=== PATIENT | female | born 1960 | race Caucasian/White ===

== ENCOUNTER → 2016-05-19 | Outpatient (CLI) | payer OTHER ==
[~2016-05-19] MED LIST: CEPH500C PO; ESTR1TAB24 PO; FRS325T PO; OXYC-12 PO; RT-COMBINH IH
--- OUTSIDE RECORDS SUMMARY | 2016-05-19 13:47 | XMS REPORT | Continuity of Care Document ---
Author Author Interface Organization Interface Address Unknown Phone Unavailable Problems Problem Status Onset Date Classification Date Reported Comments Source Medications Medication Details Route Status Patient Instructions Ordering Provider Order Date Source Allergies, Adverse Reactions, Alerts Substance Category Reaction Severity Reaction type Status Date Reported Comments Source Immunizations Immunization Date Given Site Status Last Updated Comments Source Results Order Name Results Value Reference Range Date Interpretation Comments Source CT Spine Cervical w/o Cont [id number] CT Spine Cervical w/ o Cont [id number] Name: MARCO GUAJARDO CT Scan Accession Number Exam Exam Date/Time Ordering Physician [id number] CT Spine Cervical w/o 01/09/2015 23:15 CDT Liao , Lias L Cont CPT code 99393 Reason For Exam (CT Spine Cervical w/o Cont) trauma Report EXAMINATION: CT cervical spine without contrast HISTORY: Patient fell in bathtub. Left-sided headache. Neck pain TECHNIQUE: Axial CT images through the cervical spine were obtained without IV contrast. Multiplanar reconstructed images were obtained. COMPARISON: None. FINDINGS: No acute fracture or prevertebral soft tissue swelling. Vertebral bodies are normal in height. There is grade 1 anterolisthesis of C3 on C4 and C4 on C5. There is grade 1 retrolisthesis of C5 on C6 and C6 on C7. There is facet hypertrophy and uncovertebral hypertrophy at multiple levels. Severe left neural foraminal stenosis seen at C5-6 and C6-C7. Severe right neural foraminal stenosis seen at C3-C4, C4-C5, C5-6, and C6-C7. IMPRESSION: No acute bony abnormality of the cervical spine. THIS IS AN ELECTRONICALLY VERIFIED REPORT 01/10/2015 12:06 AM: Ginger Epstein M.D. MA:mayco 12:03 AM 12:06 am APO Final Report Dictating Physician: Bryn Johnson ELECTRONIC SIGNATURE Signed: 01.10.2015 00:08 Signed by: Bryn Johnson Technologist: Antony Harrell, RT(R)(CT) 01/09/[address] Head w/o Cont [id number] CT Head w/o Cont [id number] Name: MARCO GUAJARDO CT Scan Accession Number Exam Exam Date/Time Ordering Physician [id number] CT Head w/o Cont 01/09/2015 23:15 CDT Lisa Liao CPT code 84754 Reason For Exam (CT Head w/o Cont) trauma Report EXAMINATION: CT brain without contrast HISTORY: Trauma. Patient fell in the shower. COMPARISON: None. TECHNIQUE: Axial CT images through the brain were obtained without IV contrast. FINDINGS: There is no intracranial mass, mass effect, hemorrhage, or abnormal extra-axial fluid collection. The ventricles are moderately enlarged out of proportion to the cerebral sulci. No CT evidence of acute infarction. There are periventricular and subcortical white matter hypodensities that are nonspecific but most likely represent small vessel disease. There are vascular calcifications. The visualized orbital structures are normal. The paranasal sinuses are clear. No fluid in the middle ear cavities or the mastoid air cells. No calvarial fracture. IMPRESSION: 1. No acute intracranial abnormality. 2. Moderate ventriculomegaly. This is nonspecific and may be seen with communicating hydrocephalus or normal pressure hydrocephalus. THIS IS AN ELECTRONICALLY VERIFIED REPORT 01/10/2015 12:08 AM: Ginger Epstein M.D. MA:mayco 12:06 AM 12:08 am APO Final Report Dictating Physician: Bryn Johnson ELECTRONIC SIGNATURE Signed: 01.10.2015 00:10 Signed by: Bryn Johnson Technologist: Antony Harrell, RT(R)(CT) 01/09/2015 Colt Albarran XR Humerus 2 View Left [id number] XR Humerus 2 View Left [id number] Name: MARCO GUAJARDO Diagnostic Radiology Accession Number Exam Exam Date/Time Ordering Physician [id number] XR Humerus 2 View Left 01/09/2015 23:01 CDT Lisa Liao CPT code 32039 Reason For Exam (XR Humerus 2 View Left) trauma Report Study: XR Humerus 2 View Left [id number] Reason for exam: trauma Comparison: None. Findings: No acute fracture or dislocation. No radiopaque foreign bodies. Impression: No acute osseous abnormalities. Final Report Dictating Physician: Rd Hernandez M.D. ELECTRONIC SIGNATURE Signed: 01.10.2015 14:33 Signed by: Rd Hernandez M.D. Technologist: Eldon Campos RT(R)(CT),Lora Castellon RT(R) 01/09/2015 [facility] Vital Signs Vital Sign Value Date Comments Source Encounters Location Location Details Encounter Type Encounter Number Reason For Visit Attending Provider ADM Date DC Date Status Source Procedures Procedure Code Date Perfomer Comments Source
== END ==
LOC: RAD 13:43
PROVIDERS: ATTEND Nurse Practitioner Adult Health
DX: N63 Unspecified lump in breast (principal)

== ENCOUNTER 2016-12-13 11:35 | Observation (INO) | payer OTHER ==
[~2016-12-13] VITALS: Ht 170.2 cm; Wt 60.8 kg
[2016-12-13] MEDS ORDERED: RX-NITROGLYCERIN 0.4 MG TAB BTL 25'S SL ONE (11:42)
[2016-12-13] MEDS ORDERED: ASPIRIN 81 MG CHEW (CHILDREN'S ASA) PO ONE (11:45)
--- NOTE | 2016-12-13 11:46 | ED Abdominal Pain ---
General Stated Complaint: CHEST PAIN X1 WEEK Source of Information: Patient Exam Limitations: No Limitations History of Present Illness Time Seen By Provider: 11:37 Initial Comments Here with report of central chest pain that actually his pain that radiates from her back to her chest. This is associated with some nausea occasionally. Denies sweating other than normal or breathing problems. States that she has had several episodes this week all involving activity at work. When she rests the pain goes away. The pain continues throughout any activity. This is the same as today. Reports that it's 5 out of 10 but it was 9 out of 10 yesterday. Has history of previous heart stent placement at outside facility due to active heart attack which also had back pain and neck pain as the presenting findings. Reportedly had 67 percent blockage in one of the other arteries that was not stented at that time. She reports taking meds as directed. Timing/Duration: 1 Hour Severity/Quality: Moderate, Aching Location: Other (back) Radiation: Chest Activities at Onset: None Modifying Factors: Worsens With Exercise, Improves With Resting Associated Symptoms: Back Pain, Chest Pain, No Diaphoresis, No Fever/Chills, No Shortness of Air, No Weakness Allergies and Home Medications Allergies Coded Allergies: codeine (Verified Allergy, Unknown, 12/13/16) latex (Unverified Allergy, Unknown, RASH, 09/08/12) Home Medications Cephalexin Monohydrate 500 Mg Capsule, 1 EACH PO QID, (Reported) Estradiol 1 Mg Tablet, 1 MG PO DAILY, (Reported) Ferrous Sulfate 325 Mg Tab, 325 MG PO DAILY, (Reported) Ipratropium/Albuterol Sulfate 14.7 Gm Aer.w.adap, 1-2 PUFF IH PRN, (Reported) Oxycodone Hcl/Acetaminophen 1 Each Tablet, 1-2 EACH PO Q4H PRN, (Reported) Review of Systems Constitutional: see HPI, No chills, No fever EENTM: No Symptoms Reported Respiratory: No Symptoms Reported, Denies Cough, Denies Shortness of Air Cardiovascular: See HPI, Chest Pain, Denies Edema, Denies Irregular Heart Rate Gastrointestinal: No Symptoms Reported, Denies Abdominal Pain, Nausea, Denies Vomiting Genitourinary: No Symptoms Reported Musculoskeletal: see HPI, back pain Skin: no symptoms reported All Other Systems Reviewed Negative Unless Noted: Yes Past Dvfvzhu-Icpxsf-Cdftvw Hx Patient Social History Alcohol Use: Denies Use Recreational Drug Use: No Smoking Status: Current Everyday Smoker Type Used: Cigarettes Recent Foreign Travel: No Contact w/Someone Who Travel: No Immunizations Up To Date Tetanus Booster (TDap): More than 5yrs PED Vaccines UTD: Yes Seasonal Allergies Seasonal Allergies: Yes Surgeries HX Surgeries: Yes Surgeries: Coronary Stent Respiratory Hx Respiratory Disorders: Yes Respiratory Disorders: Asthma Cardiovascular Hx Cardiac Disorders: No Cardiac Disorders: Coronary Artery Disease, Hypertension Neurological Hx Neurological Disorders: No Reproductive System Hx Reproductive Disorders: Yes (UTERINE FIBROID ) Sexually Transmitted Disease: No HIV/AIDS: No Female Reproductive Disorders: Denies TRAVEL [employer]OR History: Menopausal Genitourinary Hx Genitourinary Disorders: No Gastrointestinal Hx Gastrointestinal Disorders: Yes (HEARTBURN) Musculoskeletal Hx Musculoskeletal Disorders: No Endocrine Hx Endocrine Disorders: No HEENT HX ENT Disorders: No (READING GLASSES) Loss of Vision: Bilateral Hearing Impairment: Denies Cancer Hx Cancer: No Psychosocial Hx Psychiatric Problems: Yes Behavioral Health Disorders: Anxiety, Depression Integumentary HX Skin/Integumentary Disorder: No Blood Transfusions Hx Blood Disorders: Yes (ANEMIA) Adverse Reaction to a Blood Tr: No (NEVER HAD A TRANSFUSION) Reviewed Nursing Assessment Reviewed/Agree w Nursing PMH: Yes Family Medical History Significant Family History: No Pertinent Family Hx Physical Exam Vital Signs VS - Last 72 Hours, by Label 12/13/16 12/13/16 12/13/16 11:35 11:35 11:35 Temp 97.2 Pulse 82 Resp 18 B/P (MAP) 166/94 Pulse Ox 99 99 O2 Delivery Nasal Cannula Nasal Cannula O2 Flow Rate 2.00 2.0 Capillary Refill : General Appearance: WD/WN, no apparent distress HEENT: PERRL/EOMI, pharynx normal Neck: full range of motion, supple Respiratory: lungs clear, normal breath sounds Cardiovascular: regular rate, rhythm, no murmur Peripheral Pulses: 2+ Dorsalis Pedis (R), 2+ Left Dors-Pedis (L), 2+ Radial Pulses (R), 2+ Radial Pulses (L) Gastrointestinal: non tender, soft Extremities: non-tender, normal inspection Back: normal inspection, no CVA tenderness, no vertebral tenderness Neurologic/Psychiatric: alert, oriented x 3 Skin: normal color, warm/dry Progress/Results/Core Measures Results/Orders Lab Results Laboratory Tests Test 12/13/16 11:47 Range/Units White Blood Count 4.1 L 4.3-11.0 10^3/uL Red Blood Count 4.08 L 4.35-5.85 10^6/uL Hemoglobin 11.9 11.5-16.0 G/DL Hematocrit 37 35-52 % Mean Corpuscular Volume 91 80-99 FL Mean Corpuscular Hemoglobin 29 25-34 PG Mean Corpuscular Hemoglobin Concent 32 32-36 G/DL Red Cell Distribution Width 13.8 10.0-14.5 % Platelet Count 151 130-400 10^3/uL Mean Platelet Volume 11.1 H 7.4-10.4 FL Neutrophils (%) (Auto) 66 42-75 % Lymphocytes (%) (Auto) 22 12-44 % Monocytes (%) (Auto) 9 0-12 % Eosinophils (%) (Auto) 3 0-10 % Basophils (%) (Auto) 1 0-10 % Neutrophils # (Auto) 2.7 1.8-7.8 X 10^3 Lymphocytes # (Auto) 0.9 L 1.0-4.0 X 10^3 Monocytes # (Auto) 0.4 0.0-1.0 X 10^3 Eosinophils # (Auto) 0.1 0.0-0.3 10^3/uL Basophils # (Auto) 0.0 0.0-0.1 10^3/uL Prothrombin Time 12.5 12.2-14.7 SEC INR Comment 0.9 0.8-1.4 Activated Partial Thromboplast Time 24 24-35 SEC D-Dimer 0.69 H 0.00-0.49 UG/ML Sodium Level 140 135-145 MMOL/L Potassium Level 4.3 3.6-5.0 MMOL/L Chloride Level 107 98-107 MMOL/L Carbon Dioxide Level 27 21-32 MMOL/L Anion Gap 6 5-14 MMOL/L Blood Urea Nitrogen 17 7-18 MG/DL Creatinine 0.81 0.60-1.30 MG/DL Estimat Glomerular Filtration Rate > 60 BUN/Creatinine Ratio 21 Glucose Level 104 70-105 MG/DL Calcium Level 9.0 8.5-10.1 MG/DL Magnesium Level 1.9 1.8-2.4 MG/DL Total Bilirubin 0.4 0.1-1.0 MG/DL Aspartate Amino Transf (AST/SGOT) 18 5-34 U/L Alanine Aminotransferase (ALT/SGPT) 11 0-55 U/L Alkaline Phosphatase 60 40-136 U/L Myoglobin 45.1 10.0-92.0 NG/ML Troponin I < 0.30 <0.30 NG/ML Total Protein 5.9 L 6.4-8.2 GM/DL Albumin 3.7 3.2-4.5 GM/DL Amylase Level 59 25-125 U/L Lipase 39 8-78 U/L My Orders Orders - WILL KOHLER MD Cbc With Automated Diff (12/13/16 11:44) Magnesium (12/13/16 11:44) Chest 1 View, Ap/Pa Only (12/13/16 11:44) Ekg Tracing (12/13/16 11:44) Cardiac Profile 1 (12/13/16 11:44) Comprehensive Metabolic Panel (12/13/16 11:44) Myoglobin Serum (12/13/16 11:44) Protime With Inr (12/13/16 11:44) Partial Thromboplastin Time (12/13/16 11:44) O2 (12/13/16 11:44) Monitor-Rhythm Ecg Trace Only (12/13/16 11:44) Lipid Panel (12/14/16 06:00) Aspirin Chewable Tablet (Baby Aspirin Ch (12/13/16 11:45) Saline Lock/Iv-Start (12/13/16 11:44) Lipase (12/13/16 11:44) Amylase (12/13/16 11:44) Fibrin Degradation Products (12/13/16 11:44) Rx-Nitroglycerin Sl Tabs (Rx-Nitrostat S (12/13/16 12:00) Rx-Nitroglycerin Sl Tabs (Rx-Nitrostat S (12/13/16 11:42) Ct Angio Chest W (12/13/16 13:04) Saline Lock/Iv-Start (12/13/16 13:04) Ns Iv 1000 Ml (Sodium Chloride 0.9%) (12/13/16 13:04) Acetaminophen Tablet (Tylenol Tablet) (12/13/16 13:04) Acetaminophen Tablet (Tylenol Tablet) (12/13/16 12:58) Iohexol Injection (Omnipaque 350 Mg/Ml 1 (12/13/16 13:30) Ns (Ivpb) (Sodium Chloride 0.9% Ivpb Bag (12/13/16 13:30) Medications Given in ED Current Medications Medications Dose Ordered Sig/Yonathan Route Start Time Stop Time Status Last Admin Dose Admin Aspirin 324 mg ONCE ONCE PO 12/13/16 11:45 12/13/16 11:46 DC 12/13/16 11:49 324 MG Iohexol 150 ml ONCE ONCE IV 12/13/16 13:30 12/13/16 13:31 DC 12/13/16 13:33 125 ML Nitroglycerin 0.4 mg PRN PRN SL 12/13/16 12:00 12/13/16 11:58 0.4 MG Sodium Chloride 100 ml ONCE ONCE IV 12/13/16 13:30 12/13/16 13:31 DC 12/13/16 13:33 100 ML Sodium Chloride 1,000 ml @ 0 mls/hr Q0M ONCE IV 12/13/16 13:04 12/13/16 13:05 DC 12/13/16 13:54 1,000 MLS/HR Vital Signs/I&O Vital Sign - Last 12Hours 12/13/16 12/13/16 12/13/16 11:35 11:35 11:35 Temp 97.2 Pulse 82 Resp 18 B/P (MAP) 166/94 Pulse Ox 99 99 O2 Delivery Nasal Cannula Nasal Cannula O2 Flow Rate 2.00 2.0 Progress Note : Progress Note Seen and evaluated. IV, labs, EKG, chest x-ray, ASA 324 mg by mouth and nitroglycerin sublingual ordered. Patient had resolution of pain after 2 nitroglycerin. Monitor patient. D-dimer elevated. CT angiogram ordered and normal saline 1 L bolus. Monitor patient. 1428: I did discuss the case with Dr. Ojeda CT and UA was negative for ulnar embolism. She will admit the patient for chest pain, observation status. I did discuss the case with Dr. Seth that 1431. He accepts patient in consult. Findings and concerns discussed with patient and family who agree with plan. ECG Initial ECG Impression Date: Dec 13, 2016 Initial ECG Impression Time: 11:40 Initial ECG Rate: 74 Initial ECG Rhythm: Normal Sinus Initial ECG Intervals: Normal Comment Sinus rhythm with left atrial abnormality. Minimal ST depression in the inferior leads. No previous available for comparison. Normal axis. Interpreted by me. Diagnostic Imaging Diagonstic Imaging: Xray Plain Films/CT/US/NM/MRI: chest Comments [place], [place] NAME: MARCO GUAJARDO [facility] REC#: [id number] PT STATUS: REG ER : 1960 PHYSICIAN: WILL KOHLER MD ADMIT DATE: 12/13/16/ER Draft Date of Exam:12/13/16 CHEST 1 VIEW, AP/PA ONLY INDICATION: Chest pain FINDINGS: The lungs are clear. The heart size and vascularity within normal limits. There is no effusion or pneumothorax. IMPRESSION: No acute appearing abnormality. Dictated on workstation # [id number] Dict: 12/13/16 1216 Trans: 12/13/16 1220 [facility] [id number] Interpreted by: MIKKI MANDEL Electronically signed by: Diagonstic Imaging: CT Plain Films/CT/US/NM/MRI: chest Comments [place], [place] NAME: MARCO GUAJARDO [facility] REC#: [id number] PT STATUS: REG ER : 1960 PHYSICIAN: WILL KOHLER MD ADMIT DATE: 12/13/16/ER Draft Date of Exam:12/13/16 CT ANGIO CHEST W PROCEDURE: CT angiography of the chest with contrast. TECHNIQUE: Multiple contiguous axial images were obtained through the chest after uneventful bolus administration of intravenous contrast. Reconstructed CTA MIP acquisitions were also performed. INDICATION: Chest pain, asthma. FINDINGS: There are no pulmonary arterial filling defects. There is no PE. The thoracic aorta is patent and showed no dissection, mural hemorrhage or rupture. Some mild thickening of the central airways which can be seen in reactive and bronchitis or asthma exacerbation. Some heterogeneous air trapping most conspicuous in the apices. No ronnie bronchiectasis. No alveolar consolidation or focal pneumonia. No effusion or pneumothorax. IMPRESSION: Negative for PE or acute aortic pathology. Heterogeneous air trapping with thickening of the central airways and peribronchial cuffing. No focal consolidation or acute pleural pathology, however. Dictated on workstation # [id number] Dict: 12/13/16 1350 Trans: 12/13/16 1357 [id number] Interpreted by: MIKKI MANDEL Electronically signed by: Departure Communication Time/Spoke to Admitting Phy: 14:28 Time/Spoke to Consulting Physi: 14:31 Impression Impression: Primary Impression: Chest pain Qualified Codes: R07.9 - Chest pain, unspecified Disposition: 09 ADMITTED INPATIENT Condition: Stable Admissions Decision to Admit Reason: Admit from ER (General) Decision to Admit/Date: Dec 13, 2016 Time/Decision to Admit Time: 14:28 Departure-Patient Inst. Referrals: FREDDY SIMONS DO (PCP) Primary Care Physician LESLY TREJO (Family) Primary Care Physician WILL KOHLER MD Dec 13, 2016 11:46
[2016-12-13] MEDS: RX-NITROGLYCERIN 0.4 MG TAB BTL 25'S SL PRN ×2 (11:52→11:58)
[2016-12-13 11:56] LABS: BASOPHILS % (AUTO) 1 % (0-10); EOSINOPHILS # (AUTO) 0.1 10^3/uL (0.0-0.3); EOSINOPHILS % (AUTO) 3 % (0-10); LYMPHOCYTES # (AUTO) 0.9 X 10^3 (1.0-4.0); LYMPHOCYTES % (AUTO) 22 % (12-44); MEAN CORPUSCULAR HEMOGLOBIN 29 PG (25-34); MEAN CORPUSCULAR HGB CONC 32 G/DL (32-36); MEAN CORPUSCULAR VOLUME 91 FL (80-99); MEAN PLATELET VOLUME 11.1 FL (7.4-10.4); MONOCYTES # (AUTO) 0.4 X 10^3 (0.0-1.0); MONOCYTES % (AUTO) 9 % (0-12); NEUTROPHILS # (AUTO) 2.7 X 10^3 (1.8-7.8); NEUTROPHILS % (AUTO) 66 % (42-75); PLATELET COUNT 151 10^3/uL (130-400); RED BLOOD COUNT 4.08 10^6/uL (4.35-5.85); RED CELL DISTRIBUTION WIDTH 13.8 % (10.0-14.5); WHITE BLOOD COUNT 4.1 10^3/uL (4.3-11.0)
[2016-12-13 12:04] LABS: INR 0.9 (0.8-1.4); PROTHROMBIN TIME PATIENT 12.5 SEC (12.2-14.7)
[2016-12-13 12:14] LABS: ALANINE AMINOTRANSFERASE 11 U/L (0-55); ALBUMIN 3.7 GM/DL (3.2-4.5); AMYLASE 59 U/L (25-125); ANION GAP 6 MMOL/L (5-14); ASPARTATE AMINO TRANSFERASE 18 U/L (5-34); BILIRUBIN,TOTAL 0.4 MG/DL (0.1-1.0); BLOOD UREA NITROGEN 17 MG/DL (7-18); BUN/CREATININE RATIO 21; CARBON DIOXIDE 27 MMOL/L (21-32); CHLORIDE 107 MMOL/L (98-107); CREATININE SERUM 0.81 MG/DL (0.60-1.30); GFR ESTIMATED > 60; GLUCOSE 104 MG/DL (70-105); LIPASE 39 U/L (8-78); MAGNESIUM 1.9 MG/DL (1.8-2.4); POTASSIUM 4.3 MMOL/L (3.6-5.0); SODIUM 140 MMOL/L (135-145); TOTAL PROTEIN 5.9 GM/DL (6.4-8.2)
--- NOTE | 2016-12-13 12:20 | Diagnostic Imaging Report ---
INDICATION: Chest pain FINDINGS: The lungs are clear. The heart size and vascularity within normal limits. There is no effusion or pneumothorax. IMPRESSION: No acute appearing abnormality. Dictated by: Dictated on workstation # [id number]
[2016-12-13 12:21] LABS: MYOGLOBIN SERUM 45.1 NG/ML (10.0-92.0)
[2016-12-13] MEDS ORDERED: ACETAMINOPHEN 500 MG TAB (TYLENOL) ONE (12:58)
[2016-12-13] MEDS ORDERED: NS IV 1000 ML 1,000 ML IV ONE (13:04)
[2016-12-13] MEDS ORDERED: ACETAMINOPHEN 500 MG TAB (TYLENOL) PO STA (13:04)
[2016-12-13] MEDS ORDERED: IOHEXOL 350 MG/ML 150 ML (OMNIPAQUE 350) VIAL IV ONE (13:30)
[2016-12-13] MEDS ORDERED: NS 100 ML (IVPB) BAG IV ONE (13:30)
--- NOTE | 2016-12-13 13:57 | Diagnostic Imaging Report ---
PROCEDURE: CT angiography of the chest with contrast. TECHNIQUE: Multiple contiguous axial images were obtained through the chest after uneventful bolus administration of intravenous contrast. Reconstructed CTA MIP acquisitions were also performed. INDICATION: Chest pain, asthma. FINDINGS: There are no pulmonary arterial filling defects. There is no PE. The thoracic aorta is patent and showed no dissection, mural hemorrhage or rupture. Some mild thickening of the central airways which can be seen in reactive and bronchitis or asthma exacerbation. Some heterogeneous air trapping most conspicuous in the apices. No ronnie bronchiectasis. No alveolar consolidation or focal pneumonia. No effusion or pneumothorax. IMPRESSION: Negative for PE or acute aortic pathology. Heterogeneous air trapping with thickening of the central airways and peribronchial cuffing. No focal consolidation or acute pleural pathology, however. Dictated by: Dictated on workstation # [id number]
[2016-12-13 15:31] VITALS: BP 148/88
[2016-12-13] MEDS ORDERED: NITROGLYCERIN SUBLINGUAL 0.4 MG TAB (NITROSTAT) SL PRN (15:45)
[2016-12-13] MEDS ORDERED: CATHETER FLUSH 10 ML SYR IV PRN (15:45)
[2016-12-13] MEDS ORDERED: morphine INJ 4 MG/ML 1 ML (VIAL/SYRINGE) IV PRN (15:45)
[2016-12-13 16:01] VITALS: BP 148/88
--- NOTE | 2016-12-13 16:14 | Consultation-Cardiology ---
HPI-Cardiology Cardiology Consultation: Date of Consultation 12/13/16 Time Seen by Provider: 15:55 Date of Admission Attending Physician Renata Ojeda MD Admitting Physician Rosana Bedoya DO Consulting Physician TATY PACHECO MD, MA, FACP, FACC, FSCAI, CCDS HPI: Chief Complaint: Chest discomfort HPI: 56 yo woman who has had two episodes of cp. First one last night mostly in mid back, mod, non-radiating, lasting 5 hours, self resolving, unassociated with other symptoms, w/o aggravating or relieving factors. Another episode this am: mid back and mid chest, mild (was able to go back to sleep). When awoke from her sleep her mild chest discomfort was still there. Came to ER and s/l NTG relieved the discomfort and has since had a mild to mod headache. Today's episode, although milder, also lasted 5-6 hours Chronic tobacco use No shortness of breath or palp or syncope. Sometimes has postural dizziness Review of Systems-Cardiology Review of Systems Constitutional: No weight loss, No weight gain Eyes: No vision change Ears/Nose/Throat: No ear discharge, No nasal drainage, No recent hearing loss Respiratory: As described under HPI Cardiovascular: As described under HPI Gastrointestinal: No constipation, No diarrhea, No nausea, No vomiting Genitourinary: No dysuria, No hematuria, No urine frequency changes Musculoskeletal: back pain Skin: No rash, No ulcerations Psychiatric/Neurological: No seizure, No focal weakness, No syncope Hematologic: No bleeding abnormalities All Other Systems Reviewed Negative Unless Noted: Yes LJF-Dhxnfg-Zodeoj Hx Patient Social History Alcohol Use: Denies Use Recreational Drug Use: No Smoking Status: Current Everyday Smoker Type Used: Cigarettes Recent Foreign Travel: No Recent Infectious Disease Expo: No Hospitalization with Isolation: Denies Immunizations Up To Date Tetanus Booster (TDap): More than 5yrs Past Medical History PMH As described under Assessment. Family Medical History Family Medical History: Fam h/o early CAD. Both parents had [facility] in their early 50s Allergies and Home Medications Allergies Coded Allergies: codeine (Verified Allergy, Unknown, 12/13/16) latex (Unverified Allergy, Unknown, RASH, 09/08/12) Home Medications Cephalexin Monohydrate 500 Mg Capsule, 1 EACH PO QID, (Reported) Estradiol 1 Mg Tablet, 1 MG PO DAILY, (Reported) Ferrous Sulfate 325 Mg Tab, 325 MG PO DAILY, (Reported) Ipratropium/Albuterol Sulfate 14.7 Gm Aer.w.adap, 1-2 PUFF IH PRN, (Reported) Oxycodone Hcl/Acetaminophen 1 Each Tablet, 1-2 EACH PO Q4H PRN, (Reported) Physical Exam-Cardiology Physical Exam Vital Signs/I&O Vital Sign - Last 12Hours 12/13/16 12/13/16 12/13/16 12/13/16 11:35 11:35 11:35 15:11 Temp 97.2 Pulse 82 67 Resp 18 18 B/P (MAP) 166/94 Pulse Ox 99 99 100 O2 Delivery Nasal Cannula Nasal Cannula O2 Flow Rate 2.00 2.0 12/13/16 15:31 Temp 98.0 Pulse 63 Resp 20 B/P (MAP) 148/88 Pulse Ox 98 O2 Delivery Room Air Capillary Refill : Less Than 3 Seconds Constitutional: AAO x 3, well-developed, well-nourished HEENT: EOMI, hearing is well preserved Neck: carotid pulses are 2 + bilaterally, with good upstrokes Respiratory: accessory muscle use, lungs clear to percussion, lungs clear to auscultation Cardiovascular: regular rate-rhythm, S1 and S2, systolic murmur (faint KASH at card base) Gastrointestinal: No tender, soft, No guarding, No rebound, audible bowel sounds Extremities: No clubbing, No cyanosis, No significant edema Neurologic/Psychiatric: oriented x 3, grossly intact, power is 5/5 both on sides Skin: No rash on exposed areas, No ulcerations on exposed areas Data Review Labs Laboratory Tests 12/13/16 11:47: White Blood Count 4.1L, Red Blood Count 4.08L, Hemoglobin 11.9, Hematocrit 37, Mean Corpuscular Volume 91, Mean Corpuscular Hemoglobin 29, Mean Corpuscular Hemoglobin Concent 32, Red Cell Distribution Width 13.8, Platelet Count 151, Mean Platelet Volume 11.1H, Neutrophils (%) (Auto) 66, Lymphocytes (%) (Auto) 22 , Monocytes (%) (Auto) 9, Eosinophils (%) (Auto) 3, Basophils (%) (Auto) 1, Neutrophils # (Auto) 2.7, Lymphocytes # (Auto) 0.9L, Monocytes # (Auto) 0.4, Eosinophils # (Auto) 0.1, Basophils # (Auto) 0.0, Prothrombin Time 12.5, INR Comment 0.9, Activated Partial Thromboplast Time 24, D-Dimer 0.69H, Sodium Level 140, Potassium Level 4.3, Chloride Level 107, Carbon Dioxide Level 27, Anion Gap 6, Blood Urea Nitrogen 17, Creatinine 0.81, Estimat Glomerular Filtration Rate > 60, BUN/Creatinine Ratio 21, Glucose Level 104, Calcium Level 9.0, Magnesium Level 1.9, Total Bilirubin 0.4, Aspartate Amino Transf (AST/SGOT ) 18, Alanine Aminotransferase (ALT/SGPT) 11, Alkaline Phosphatase 60, Myoglobin 45.1, Troponin I < 0.30, Total Protein 5.9L, Albumin 3.7, Amylase Level 59, Lipase 39 Laboratory Tests 12/13/16 11:47 A/P-Cardiology Assessment/Admission Diagnosis CAD: cor stenting after [facility] in Nov 2104 at [place], [place] (Promus 3x32 in RCA on 12/07/14, according to her wallet card) Chronic tobacco use Hypertension Hyperlipidemia H/o bronchial asthma Fam h/o early CAD Discussion and Recomendations * Observation for ACS * Echo in am * Further recs to be based on hosp course * Advised to quit tobacco use Clinical Quality Measures AMI/AHF: ASA po Prior to arrival: TATY Madison MD FACP FAC CCDS Dec 13, 2016 16:14
[2016-12-13] MEDS ORDERED: lisINopril 20 MG (ZESTRIL) TAB PO NR (16:30)
[2016-12-13] MEDS ORDERED: ACETAMINOPHEN 325 MG TABLET/CAPLET (TYLENOL) PO PRN (16:30)
[2016-12-13] MEDS ORDERED: ASPIRIN 81 MG CHEW (CHILDREN'S ASA) PO NR (16:30)
[2016-12-13] MEDS ORDERED: CLOPIDOGREL 75 MG (PLAVIX) TABLET PO NR ×2 (16:30)
[2016-12-13] MEDS ORDERED: LISINOPRIL 40 MG TAB PO NR (16:30)
[2016-12-13] MEDS ORDERED: PATIENT MAY USE OWN MEDS, ALL MC SCH (16:45)
[2016-12-13] MEDS: NS IV 1000 ML 1,000 ML IV SCH (16:50)
[2016-12-13] MEDS ORDERED: RT-ALBUTEROL/IPRATROPIUM 3 ML (DUONEB) VIAL INH PRN (18:00)
[2016-12-13] MEDS ORDERED: NICOTINE 21 MG (NICODERM) PATCH ONE (18:16)
[2016-12-13 20:16] VITALS: BP 143/74
[2016-12-13] MEDS: RT-ALBUTEROL/IPRATROPIUM 3 ML (DUONEB) VIAL INH SCH (20:19)
[2016-12-13] MEDS: CARVEDILOL 3.125 MG (COREG) TABLET PO SCH (20:38)
[2016-12-13] MEDS ORDERED: LIPITOR 80 MG PO SCH (21:00)
[2016-12-13] MEDS ORDERED: ATORVASTATIN 40 MG (LIPITOR) TABLET PO SCH (21:00)
[2016-12-13] MEDS ORDERED: CARVEDILOL 3.125 MG (COREG) TABLET PO SCH (21:00)
[2016-12-14] VITALS: BP 114/54
--- OUTSIDE RECORDS SUMMARY | 2016-12-14 02:08 | XMS REPORT ---
Author Author LESLY TREJO Organization [employer] Address Unknown Phone Unavailable Care Team Providers Care Theater Technician Name Role Phone LESLY TREJO Unavailable Allergies No Known Allergies Problems Problem Type Condition Code Onset Dates Condition Status Problem Breast lump N63 Active Problem Abnormal finding on mammography R92.8 Active Problem Coronary artery disease, angina presence unspecified, unspecified vessel or lesion type, unspecified whether atka or transplanted heart I25.10 Active Problem Anxiety F41.9 Active Problem Combined hyperlipidemia E78.2 Active Problem Depression, unspecified depression type F32.9 Active Problem Secondary hypertension I15.9 Active Problem Uncomplicated asthma, unspecified asthma severity J45.909 Active Medications No Known Medications Results No Known Results Summary Purpose [employer] Submission
--- OUTSIDE RECORDS SUMMARY | 2016-12-14 02:08 | XMS REPORT ---
Author Author LESLY TREJO [facility] eClinicalWorks Address Unknown Phone Unavailable Care Team Providers Care House Mover Supervisor Name Role Phone LESLY TREJO CP Unavailable Allergies, Adverse Reactions, Alerts Substance Reaction Event Type Latex rash Drug Allergy Codeine Sulfate nausea and vomiting Drug Allergy Problems Problem Type Condition Code Onset Dates Condition Status Assessment Combined hyperlipidemia E78.2 Active Assessment Secondary hypertension I15.9 Active Assessment Uncomplicated asthma, unspecified asthma severity J45.909 Active Assessment Breast lump N63 Active Assessment Depression, unspecified depression type F32.9 Active Problem Secondary hypertension I15.9 Active Problem Uncomplicated asthma, unspecified asthma severity J45.909 Active Problem Coronary artery disease, angina presence unspecified, unspecified vessel or lesion type, unspecified whether [place] or transplanted heart I25.10 Active Problem Breast lump N63 Active Assessment Coronary artery disease, angina presence unspecified, unspecified vessel or lesion type, unspecified whether [place] or transplanted heart I25.10 Active Problem Combined hyperlipidemia E78.2 Active Problem Depression, unspecified depression type F32.9 Active Medications Medication Code System Code Instructions Start Date End Date Status Dosage Lipitor [facility] [address]-34 80 MG Orally Once a day 1 tablet Aspirin [facility] [address]6618 81 MG Orally Once a day 1 tablet Coreg [facility] [address]-46 3.125 MG Orally 2 times a day 1 tablet Nitrostat [facility] [address]-69 0.4 MG Sublingual not defined Albuterol Sulfate [facility] [address]-53 108 (90 Base) MCG/ACT Inhalation every 4 hrs 1-2 puff as needed Plavix [facility] [address]-66 75 MG Orally Once a day 1 tablet Lisinopril [facility] [address]-85 40 mg Orally Once a day 1 tablet Procedures Procedure Coding System Code Date COMPREHEN METABOLIC PANEL CPT-4 46272 November 06, 2015 LIPID PANEL CPT-4 46460 November 06, 2015 COMPLETE CBC W/AUTO DIFF WBC CPT-4 05591 November 06, 2015 Office Visit, New Pt., Level 4 CPT-4 37422 November 06, 2015 ASSAY THYROID STIM HORMONE CPT-4 44296 November 06, 2015 Vital Signs Date/Time: November 06, 2015 Cardiac Monitoring Heart Rate 80 bpm Weight 129 lbs Height 67 in Blood Pressure Diastolic 100 mmHg Blood Pressure Systolic 160 mmHg Results No Known Results Summary Purpose eClinicalWorks Submission
--- OUTSIDE RECORDS SUMMARY | 2016-12-14 02:08 | XMS REPORT | Continuity of Care Document ---
Author Author [employer] [facility] Address Unknown Phone Unavailable Care Team Providers Care Bug Trimmer Name Role Phone [employer] Unavailable Unavailable Problems Medications Allergies, Adverse Reactions, Alerts Immunizations Results Order Name Results Value Reference Range Date Interpretation Comments Source CT Head w/[place] Cont [id number] CT Head w/o Cont [id number] Name: MARCO GUAJARDO CT Scan Accession Number Exam Exam Date/Time Ordering Physician [id number] CT Head w/o Cont 01/09/2015 23:15 CDT Lisa Liao CPT code 00762 Reason For Exam (CT Head w/o Cont) [...] Antony Harrell, RT(R)(CT) 01/09/[address] Spine Cervical w/o Cont [id number] CT Spine Cervical w/ o Cont [id number] Name: MARCO GUAJARDO CT Scan Accession Number Exam Exam Date/Time Ordering Physician [id number] CT Spine Cervical w/o 01/09/2015 23:15 CDT Lisa Liao L Cont CPT code 64133 Reason For Exam (CT Spine Cervical w/o [...] Colt Albarran XR Humerus 2 View Left [id number] XR Humerus 2 View Left [id number] Name: MARCO GUAJARDO Diagnostic Radiology Accession Number Exam Exam Date/Time Ordering Physician [id number] XR Humerus 2 View Left 01/09/2015 23:01 CDT LiaoSteven espinalacia L CPT code 93687 Reason For Exam (XR Humerus 2 View Left) trauma Report Study: XR Humerus 2 View Left [id number] Reason for exam: trauma Comparison: None. Findings: No acute fracture or dislocation. No radiopaque foreign bodies. Impression: No acute osseous abnormalities. Final Report Dictating Physician: Rd Hernandez M.D. ELECTRONIC SIGNATURE Signed: 01.10.2015 14:33 Signed by: Rd Hernandez M.D. Technologist: Eldon Campos RT(R)(CT),Lora Castellon, RT(R) 01/09/2015 [facility] Vital Signs Encounters Procedures Plan of Care Social History Assessment and Plan Family History Value Date Source Advance Directives Order Name Results Value Date Source
--- OUTSIDE RECORDS SUMMARY | 2016-12-14 02:08 | XMS REPORT ---
Author Author LESLY TREJO Organization [employer] Address Unknown Phone Unavailable Care Team Providers Care Almond Cutting Machine Tender Name Role Phone LESLY TREJO Unavailable Allergies [...] unspecified vessel or lesion type, unspecified whether [place] or transplanted heart I25.10 Active Problem Breast lump N63 Active Assessment Coronary artery disease, angina presence unspecified, unspecified vessel or lesion type, unspecified whether [place] or transplanted heart I25.10 Active Problem Combined hyperlipidemia E78.2 Active Problem Depression, unspecified depression type F32.9 Active Medications No Known Medications Procedures Procedure Coding System Code Date COMPREHEN METABOLIC PANEL CPT-4 55967 November 08, 2015 ASSAY THYROID STIM HORMONE CPT-4 74690 November 08, 2015 COMPLETE CBC W/AUTO DIFF WBC CPT-4 47995 November 08, 2015 VENIPUNCT, ROUTINE* CPT-4 48645 November 08, 2015 LIPID PANEL CPT-4 53296 November 08, 2015 Results No Known Results Summary Purpose eClinicalWorks Submission
--- OUTSIDE RECORDS SUMMARY | 2016-12-14 02:09 | XMS REPORT ---
Author Author LESLY TREJO Organization [employer] Address Unknown Phone Unavailable Care Team Providers Care Outside Salesperson Name Role Phone LESLY TREJO Unavailable Allergies No Known Allergies Problems Problem Type Condition Code Onset Dates Condition Status Problem Breast lump N63 Active Problem Abnormal finding on mammography R92.8 Active Problem Coronary artery disease, angina presence unspecified, unspecified vessel or lesion type, unspecified whether [place] or transplanted heart I25.10 Active Problem Anxiety F41.9 Active Problem Combined hyperlipidemia E78.2 Active Problem Depression, unspecified depression type F32.9 Active Problem Secondary hypertension I15.9 Active Problem Uncomplicated asthma, unspecified asthma severity J45.909 Active Medications Medication Code System Code Instructions Start Date End Date Status Dosage Albuterol Sulfate [facility] [address]-14 108 (90 Base) MCG/ACT Inhalation every 4 hrs 1-2 puff as needed Results No Known Results Summary Purpose eClinicalWorks Submission
--- OUTSIDE RECORDS SUMMARY | 2016-12-14 02:09 | XMS REPORT ---
Author Author LESLY TREJO Organization [employer] Address Unknown Phone Unavailable Care Team Providers Care Bessemer Bottom Maker Name Role Phone LESLY TREJO Unavailable Allergies No Known Allergies Problems Problem Type Condition Code Onset Dates Condition Status Assessment Breast lump N63 Active Problem Coronary artery disease, angina presence unspecified, unspecified vessel or lesion type, unspecified whether [place] or transplanted heart I25.10 Active Problem Secondary hypertension I15.9 Active Problem Abnormal finding on mammography R92.8 Active Problem Depression, unspecified depression type F32.9 Active Problem Breast lump N63 Active Problem Uncomplicated asthma, unspecified asthma severity J45.909 Active Problem Combined hyperlipidemia E78.2 Active Medications No Known Medications Results No Known Results Summary Purpose eClinicalWorks Submission
--- OUTSIDE RECORDS SUMMARY | 2016-12-14 02:09 | XMS REPORT ---
Author Author LESLY TREJO [facility] eClinicalWorks Address Unknown Phone Unavailable Care Team Providers Care Administrative Sales Assistant Name Role Phone LESLY TREJO CP Unavailable Allergies, Adverse Reactions, Alerts Substance Reaction Event Type Latex rash Drug Allergy Codeine Sulfate nausea and vomiting Drug Allergy Problems Problem Type Condition Code Onset Dates Condition Status Assessment Cough R05 Active Problem Breast lump N63 Active Assessment Acute maxillary sinusitis, recurrence not specified J01.00 Active Problem Abnormal finding on mammography R92.8 Active Problem Coronary artery disease, angina presence unspecified, unspecified vessel or lesion type, unspecified whether [place] or transplanted heart I25.10 Active Problem Anxiety F41.9 Active Problem Combined hyperlipidemia E78.2 Active Problem Depression, unspecified depression type F32.9 Active Problem Secondary hypertension I15.9 Active Problem Uncomplicated asthma, unspecified asthma severity J45.909 Active Medications Medication Code System Code Instructions Start Date End Date Status Dosage Proventil HFA [facility] [address]-24 108 (90 Base) MCG/ACT Inhalation every 4 hrs November 20, 2015 2 puffs as needed Lisinopril [facility] [address]-50 40 mg Orally Once a day 1 tablet Nitrostat [facility] [address]-50 0.4 MG Sublingual not defined Albuterol Sulfate [facility] [address]-60 108 (90 Base) MCG/ACT Inhalation every 4 hrs 1-2 puff as needed PredniSONE [facility] [address]-32 10 mg Orally twice a day Mar 13, 2016Feb 1 tablet Aspirin [facility] [address]59-96122 81 MG Orally Once a day 1 tablet Lipitor [facility] [address]-18 80 MG Orally Once a day 1 tablet Benzonatate [facility] [address]-07 200 mg Orally Three times a day Mar 13, 2016 Mar 23, 2016 1 capsule Azithromycin [facility] [address]-22 250 MG Orally Once a day Mar 13, 2016 Mar 18, 2016 2 tablets on the first day, then 1 tablet daily for 4 days Plavix [facility] [address]-75 75 MG Orally Once a day 1 tablet Coreg [facility] [address]-87 3.125 MG Orally 2 times a day 1 tablet BusPIRone HCl [facility] [address]-94 10 mg Orally Twice a day November 20, 2015 1 tablet Potassium & Magnesium Aspartat [facility] [address]65366 250-250 MG Orally Once a day 1 capsule with a meal Procedures Procedure Coding System Code Date Office Visit, Est Pt., Level 3 CPT-4 70908 Mar 13, 2016 Vital Signs Date/Time: Mar 13, 2016 Cardiac Monitoring Heart Rate 88 bpm Weight 124.7 lbs Height 67 in BMI 19.53 Index Blood Pressure Diastolic 54 mmHg Blood Pressure Systolic 126 mmHg Results No Known Results Summary Purpose eClinicalWorks Submission
--- OUTSIDE RECORDS SUMMARY | 2016-12-14 02:09 | XMS REPORT ---
Author Author FREDDY SIMONS [facility] eClinicalWorks Address Unknown Phone Unavailable Care Team Providers Care Vehicle Mechanic Name Role Phone FREDDY SIMONS CP Unavailable Allergies No Known Allergies Problems Problem Type Condition Code Onset Dates Condition Status Problem Breast lump N63 Active Problem Abnormal finding on mammography R92.8 Active Problem Coronary artery disease, angina presence unspecified, unspecified vessel or lesion type, unspecified whether [place] or transplanted heart I25.10 Active Problem Anxiety F41.9 Active Problem Combined hyperlipidemia E78.2 Active Problem Depression, unspecified depression type F32.9 Active Problem Secondary hypertension I15.9 Active Problem Uncomplicated asthma, unspecified asthma severity J45.909 Active Medications Medication Code System Code Instructions Start Date End Date Status Dosage Nitrostat [facility] [address]-99 0.4 MG Sublingual not defined Plavix [facility] [address]-80 75 MG Orally Once a day 1 tablet Proventil HFA [facility] [address]-77 108 (90 Base) MCG/ACT Inhalation every 4 hrs November 20, 2015 2 puffs as needed Lipitor [facility] [address]-67 80 MG Orally Once a day 1 tablet Aspirin [facility] 368[address]853 81 MG Orally Once a day 1 tablet Coreg [facility] [address]-95 3.125 MG Orally 2 times a day 1 tablet BusPIRone HCl [facility] [address]-21 10 mg Orally Twice a day November 20, 2015 1 tablet Potassium & Magnesium Aspartat [facility] [address]75 250-250 MG Orally Once a day 1 capsule with a meal Albuterol Sulfate [facility] [address]-17 108 (90 Base) MCG/ACT Inhalation every 4 hrs 1-2 puff as needed Lisinopril [facility] [address]-33 40 mg Orally Once a day 1 tablet Results No Known Results Summary Purpose eClinicalWorks Submission
--- OUTSIDE RECORDS SUMMARY | 2016-12-14 02:09 | XMS REPORT ---
Author Author LESLY TREJO Organization [employer]ClinicalWorks Address Unknown Phone Unavailable Care Team Providers Care Last Putter Away Name Role Phone LESLY TREJO Unavailable Allergies No Known Allergies Problems Problem Type Condition Code Onset Dates Condition Status Problem Breast lump N63 Active Problem Abnormal finding on mammography R92.8 Active Problem Coronary artery disease, angina presence unspecified, unspecified vessel or lesion type, unspecified whether [place] or transplanted heart I25.10 Active Problem Anxiety F41.9 Active Problem Combined hyperlipidemia E78.2 Active Problem Depression, unspecified depression type F32.9 Active Problem Secondary hypertension I15.9 Active Problem Uncomplicated asthma, unspecified asthma severity J45.909 Active Medications No Known Medications Results No Known Results Summary Purpose eClinicalWorks Submission
--- OUTSIDE RECORDS SUMMARY | 2016-12-14 02:09 | XMS REPORT ---
Author Author LESLY TREJO Organization [employer] Address Unknown Phone Unavailable Care Team Providers Care Wafer Polishing Lead Worker Name Role Phone LESLY TREJO Unavailable Allergies No Known Allergies Problems Problem Type Condition Code Onset Dates Condition Status Problem Secondary hypertension I15.9 Active Problem Uncomplicated asthma, unspecified asthma severity J45.909 Active Problem Coronary artery disease, angina presence unspecified, unspecified vessel or lesion type, unspecified whether [place] or transplanted heart I25.10 Active Problem Breast lump N63 Active Assessment Breast lump N63 Active Problem Combined hyperlipidemia E78.2 Active Problem Depression, unspecified depression type F32.9 Active Medications No Known Medications Results No Known Results Summary Purpose eClinicalWorks Submission
--- OUTSIDE RECORDS SUMMARY | 2016-12-14 02:33 | XMS REPORT ---
Author Author PAU QUEZADA Organization [facility] Address [address] [place] [address] Care Team Providers Care Political Advisor Name Role Phone PAU QUEZADA Unavailable PROBLEMS Type Condition ICD9-CM Code NKA99-SA Code Onset Dates Condition Status SNOMED Code Problem Depression, unspecified depression type F32.9 Active 70347751 Problem Uncomplicated asthma, unspecified asthma severity J45.909 Active 455711079 Problem Combined hyperlipidemia E78.2 Active 788373291 Problem Breast lump N63 Active 85865815 Problem Hypercholesterolemia E78.00 Active 48711031 Problem Pain of left hip joint M25.552 Active 16876650 Problem Coronary artery disease, angina presence unspecified, unspecified vessel or lesion type, unspecified whether [place] or transplanted heart I25.10 Active 85866668 Problem Secondary hypertension I15.9 Active 36755153 Problem Anxiety F41.9 Active 58347609 Problem Abnormal finding on mammography R92.8 Active 835158935 ALLERGIES Substance Reaction Event Type Date Status Latex rash Drug Allergy Jan, Active Codeine Sulfate nausea and vomiting Drug Allergy Jan, Active SOCIAL HISTORY No smoking Hx information available PLAN OF CARE Activity Details Follow Up 10 days Reason:Suture removal VITAL SIGNS MEDICATIONS Medication Instructions Dosage Frequency Start Date End Date Duration Status Lipitor 80 MG Orally Once a day 1 tablet 24h Active Proventil HFA 108 (90 Base) MCG/ACT Inhalation every 4 hrs 2 puffs as needed 4h Oct, Active Albuterol Sulfate 108 (90 Base) MCG/ACT Inhalation every 4 hrs 1-2 puff as needed 4h Active Aspirin 81 MG Orally Once a day 1 tablet 24h Active Coreg 3.125 MG Orally 2 times a day 1 tablet 12h Active Nitrostat 0.4 MG Active Potassium & Magnesium Aspartat 250-250 MG Orally Once a day 1 capsule with a meal 24h Active Lisinopril 40 mg Orally Once a day 1 tablet 24h Active BusPIRone HCl 10 mg Orally Twice a day 1 tablet 12h Oct, Active Plavix 75 MG Orally Once a day 1 tablet 24h Active RESULTS No Results PROCEDURES Procedure Date Ordered Related Diagnosis Body Site Office Visit, Est Pt., Level 3 Feb 22, 2016 IMMUNIZATIONS No Known Immunizations
--- OUTSIDE RECORDS SUMMARY | 2016-12-14 02:33 | XMS REPORT | Continuity of Care Document ---
Author Author [employer] [facility] Address Unknown Phone Unavailable Care Team Providers Care Intermediate Manager Name Role Phone [employer] Unavailable Unavailable Problems Medications Allergies, Adverse Reactions, Alerts Immunizations Results Order Name Results Value Reference Range Date Interpretation Comments Source CT Head w/[place] Cont [id number] CT Head w/o Cont [id number] Name: MARCO GUAJARDO CT Scan Accession Number Exam Exam Date/Time Ordering Physician [id number] CT Head w/o Cont 01/09/2015 23:15 CDT Lisa Liao CPT code 07551 Reason For Exam (CT Head w/o Cont) [...] Colt Albarran CT Spine Cervical w/o Cont [id number] CT Spine Cervical w/ o Cont [id number] Name: [address] Scan Accession Number Exam Exam Date/Time Ordering Physician [id number] CT Spine Cervical w/o 01/09/2015 23:15 CDT Lisa Liao L Cont CPT code 27294 Reason For Exam (CT Spine Cervical w/o [...] Colt Albarran XR Humerus 2 View Left 45333 XR Humerus 2 View Left [id number] Name: MARCO GUAJARDO Diagnostic Radiology Accession Number Exam Exam Date/Time Ordering Physician [id number] XR Humerus 2 View Left 01/09/2015 23:01 CDT LiaoSteven espinalacia L CPT code 79161 Reason For Exam (XR Humerus 2 View Left) trauma Report Study: XR Humerus 2 View Left 74905 Reason for exam: trauma Comparison: None. Findings: No acute fracture or dislocation. No radiopaque foreign bodies. Impression: No acute osseous abnormalities. Final Report Dictating Physician: Rd Hernandez M.D. ELECTRONIC SIGNATURE Signed: 01.10.2015 14:33 Signed by: Rd Hernandez M.D. Technologist: Eldon Campos RT(R)(CT),Lora Castellon, RT(R) 01/09/2015 [facility] Vital Signs Encounters Procedures Plan of Care Social History Assessment and Plan Family History Value Date Source Advance Directives Order Name Results Value Date Source
[2016-12-14 04:00] VITALS: BP 117/62
[2016-12-14 05:20] LABS: BASOPHILS % (AUTO) 1 % (0-10); EOSINOPHILS # (AUTO) 0.2 10^3/uL (0.0-0.3); EOSINOPHILS % (AUTO) 4 % (0-10); LYMPHOCYTES # (AUTO) 1.3 X 10^3 (1.0-4.0); LYMPHOCYTES % (AUTO) 31 % (12-44); MEAN CORPUSCULAR HEMOGLOBIN 29 PG (25-34); MEAN CORPUSCULAR HGB CONC 31 G/DL (32-36); MEAN CORPUSCULAR VOLUME 91 FL (80-99); MEAN PLATELET VOLUME 11.3 FL (7.4-10.4); MONOCYTES # (AUTO) 0.5 X 10^3 (0.0-1.0); MONOCYTES % (AUTO) 11 % (0-12); NEUTROPHILS # (AUTO) 2.3 X 10^3 (1.8-7.8); NEUTROPHILS % (AUTO) 53 % (42-75); PLATELET COUNT 147 10^3/uL (130-400); RED BLOOD COUNT 3.74 10^6/uL (4.35-5.85); RED CELL DISTRIBUTION WIDTH 13.7 % (10.0-14.5); WHITE BLOOD COUNT 4.3 10^3/uL (4.3-11.0)
[2016-12-14 06:06] LABS: ALANINE AMINOTRANSFERASE 13 U/L (0-55); ALBUMIN 3.1 GM/DL (3.2-4.5); ANION GAP 9 MMOL/L (5-14); ASPARTATE AMINO TRANSFERASE 18 U/L (5-34); BILIRUBIN,TOTAL 0.2 MG/DL (0.1-1.0); BLOOD UREA NITROGEN 13 MG/DL (7-18); BUN/CREATININE RATIO 18; CALCIUM 8.6 MG/DL (8.5-10.1); CARBON DIOXIDE 22 MMOL/L (21-32); CHLORIDE 110 MMOL/L (98-107); CHOLESTEROL 127 MG/DL (< 200); CREATININE SERUM 0.72 MG/DL (0.60-1.30); DIRECT LDL 73 MG/DL (1-129); GFR ESTIMATED > 60; GLUCOSE 92 MG/DL (70-105); MAGNESIUM 2.5 MG/DL (1.8-2.4); POTASSIUM 3.9 MMOL/L (3.6-5.0); SODIUM 141 MMOL/L (135-145); TOTAL PROTEIN 5.1 GM/DL (6.4-8.2); TRIGLYCERIDES 138 MG/DL (<150); VLDL CHOLESTEROL 28 MG/DL (5-40)
[2016-12-14 06:26] LABS: THYROID STIMULATING HORMONE 1.24 UIU/ML (0.35-4.94)
[2016-12-14] MEDS: NS IV 1000 ML 1,000 ML IV SCH (06:43)
[2016-12-14 08:00] VITALS: BP 154/84
[2016-12-14] MEDS ORDERED: lisINopril 20 MG (ZESTRIL) TAB PO SCH (09:00)
[2016-12-14] MEDS ORDERED: CLOPIDOGREL 75 MG (PLAVIX) TABLET PO SCH ×2 (09:00)
[2016-12-14] MEDS ORDERED: NICOTINE 21 MG (NICODERM) PATCH TD SCH (09:00)
[2016-12-14] MEDS ORDERED: LISINOPRIL 40 MG TAB PO SCH (09:00)
[2016-12-14] MEDS ORDERED: ASPIRIN 81 MG CHEW (CHILDREN'S ASA) PO SCH (09:00)
[2016-12-14] MEDS ORDERED: ASPIRIN E.C. 325 MG (ECOTRIN) TABLET PO SCH (09:00)
[2016-12-14] MEDS: CARVEDILOL 3.125 MG (COREG) TABLET PO SCH (09:11)
[2016-12-14] MEDS: RT-ALBUTEROL/IPRATROPIUM 3 ML (DUONEB) VIAL INH SCH (10:08)
[2016-12-14 12:00] VITALS: BP 134/77
--- NOTE | 2016-12-14 12:34 | Progress Note-Cardiology ---
Cardiology SOAP Progress Note Subjective: No cp or palp or syncope or shortness of breath Reports chronic low energy level Objective: I&O/Vital Signs Vital Sign - Last 12Hours 12/14/16 12/14/16 12/14/16 12/14/16 01:00 04:00 07:00 08:00 Temp 97.8 97.3 Pulse 76 78 64 73 Resp 18 20 B/P (MAP) 117/62 154/84 Pulse Ox 97 97 O2 Delivery Room Air Room Air 12/14/16 10:08 Pulse Ox 98 O2 Delivery Room Air Weight (Pounds): 134 Weight (Ounces): 0.0 Weight (Calculated Kilograms): 60.661792 Constitutional: AAO x 3, well-developed, well-nourished Respiratory: accessory muscle use, lungs clear to percussion, lungs clear to auscultation Cardiovascular: regular rate-rhythm, S1 and S2, systolic murmur (faint KASH at card base) Gastrointestional: No tender, soft, No guarding, No rebound, audible bowel sounds Extremities: No clubbing, No cyanosis, No significant edema Neurologic/Psychiatric: oriented x 3, grossly intact, power is 5/5 both on sides Skin: No rash on exposed areas, No ulcerations on exposed areas Results/Procedures: Labs Laboratory Tests 12/13/16 18:12: Troponin I < 0.30 12/13/16 23:00: Troponin I < 0.30 12/14/16 04:21: White Blood Count 4.3, Red Blood Count 3.74L, Hemoglobin 10.7L, Hematocrit 34L, Mean Corpuscular Volume 91, Mean Corpuscular Hemoglobin 29, Mean Corpuscular Hemoglobin Concent 31L, Red Cell Distribution Width 13.7, Platelet Count 147, Mean Platelet Volume 11.3H, Neutrophils (%) (Auto) 53, Lymphocytes (%) (Auto) 31 , Monocytes (%) (Auto) 11, Eosinophils (%) (Auto) 4, Basophils (%) (Auto) 1, Neutrophils # (Auto) 2.3, Lymphocytes # (Auto) 1.3, Monocytes # (Auto) 0.5, Eosinophils # (Auto) 0.2, Basophils # (Auto) 0.0, Sodium Level 141, Potassium Level 3.9, Chloride Level 110H, Carbon Dioxide Level 22, Anion Gap 9, Blood Urea Nitrogen 13, Creatinine 0.72, Estimat Glomerular Filtration Rate > 60, BUN/ Creatinine Ratio 18, Glucose Level 92, Calcium Level 8.6, Magnesium Level 2.5H, Total Bilirubin 0.2, Aspartate Amino Transf (AST/SGOT) 18, Alanine Aminotransferase (ALT/SGPT) 13, Alkaline Phosphatase 55, Total Protein 5.1L, Albumin 3.1L, Triglycerides Level 138, Cholesterol Level 127, LDL Cholesterol Direct 73, VLDL Cholesterol 28, HDL Cholesterol 34L, Thyroid Stimulating Hormone (TSH) 1.24 Laboratory Tests 12/13/16 11:47 12/14/16 04:21 A/P: Assessment: Nonspecific chest discomfort w/o any evidence of ACS CAD: cor stenting after MO in Nov 2104 at [place], [place] (Promus 3x32 in RCA on 12/07/14, according to her wallet card) Mild anemia of undetermined etiology, w/u and treatment is with the Medical [facility] Chronic tobacco use Hypertension Hyperlipidemia H/o bronchial asthma Fam h/o early CAD Plan: * Echo today * Increase ambulation * Advised to quit smoking immediately and completely * Probable discharge today * Outpatient cardiac f/u advised * I spoke with her and answered CV-related questions in detail Clinical Quality Measures AMI/AHF: ASA po Prior to arrival: TATY [place] MD FACP FAC CCDS Dec 14, 2016 12:34
--- NOTE | 2016-12-14 13:08 | Short Stay Summary ---
HPI History of Present Illness: 56 yo F that presented to ER with several episodes of chest pain. States that she has had at least 4-5 episodes in the last week. They come on when she is at work and last about 2-3 hrs and resolve with rest. Pain is in her back and up to her neck. No radiation to jaw or arm. No aggravating factors. + shortness of breath. + h/o CAD with stenting in 2014. 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 + smoker since she was 17 yo 1/2 ppd. Source: patient, family, RN/MD, old records Exam Limitations: no limitations Date seen by provider: Dec 14, 2016 Time Seen by Provider: 12:15 Attending Physician Renata Ojeda MD PCP Rosana Bedoya DO Consult Date of Admission Dec 13, 2016 at 14:34 Home Medications Home Medications Reviewed patient Home Medication Reconciliation Form Allergies Coded Allergies: codeine (Verified Allergy, Unknown, 12/13/16) latex (Unverified Allergy, Unknown, RASH, 09/08/12) YOK-Uznbst-Nvaxge Hx Patient Social History Living Status: Lives with sister Alcohol Use: Occasionally Uses Recreational Drug Use: No Smoking Status: Current Everyday Smoker Type Used: Cigarettes Recent Foreign Travel: No Contact w/other who traveled: No Recent Infectious Disease Expo: No Physical Abuse Screen: No Sexual Abuse: No Immunizations Up To Date Tetanus Booster (TDap): More than 5yrs Past Medical History CAD with Stenting in 2014 HTN Asthma Tobacco Use Family Medical History Significant Family History: Heart Disease, CAD Under 55 Years Old, Diabetes, Hypertension Family History: Alcoholism Arthritis Asthma Cardiovascular disease Cataracts Drug abuse Hypertension Myocardial infarction Psychosocial problem Respiratory disorder Review of Systems (CHC) Constitutional: No dizziness, No fever, malaise EENTM: No no symptoms reported, No double vision, No mouth pain Respiratory: dyspnea on exertion Cardiovascular: chest pain, No edema, No palpitations Gastrointestinal: No abdominal pain, No constipation, No diarrhea, No nausea, No vomiting Genitourinary: no symptoms reported, No dysuria, No frequency, No hematuria : No Musculoskeletal: back pain, neck pain Skin: no symptoms reported, No lesions, No rash Psychiatric/Neurological: No Symptoms Reported, Denies Headache, Denies Weakness Reviewed Test Results Reviewed Test Results Lab Laboratory Tests Test 12/13/16 18:12 12/13/16 23:00 12/14/16 04:21 Range/Units Troponin I < 0.30 < 0.30 <0.30 NG/ML White Blood Count 4.3 4.3-11.0 10^3/uL Red Blood Count 3.74 L 4.35-5.85 10^6/uL Hemoglobin 10.7 L 11.5-16.0 G/DL Hematocrit 34 L 35-52 % Mean Corpuscular Volume 91 80-99 FL Mean Corpuscular Hemoglobin 29 25-34 PG Mean Corpuscular Hemoglobin Concent 31 L 32-36 G/DL Red Cell Distribution Width 13.7 10.0-14.5 % Platelet Count 147 130-400 10^3/uL Mean Platelet Volume 11.3 H 7.4-10.4 FL Neutrophils (%) (Auto) 53 42-75 % Lymphocytes (%) (Auto) 31 12-44 % Monocytes (%) (Auto) 11 0-12 % Eosinophils (%) (Auto) 4 0-10 % Basophils (%) (Auto) 1 0-10 % Neutrophils # (Auto) 2.3 1.8-7.8 X 10^3 Lymphocytes # (Auto) 1.3 1.0-4.0 X 10^3 Monocytes # (Auto) 0.5 0.0-1.0 X 10^3 Eosinophils # (Auto) 0.2 0.0-0.3 10^3/uL Basophils # (Auto) 0.0 0.0-0.1 10^3/uL Sodium Level 141 135-145 MMOL/L Potassium Level 3.9 3.6-5.0 MMOL/L Chloride Level 110 H 98-107 MMOL/L Carbon Dioxide Level 22 21-32 MMOL/L Anion Gap 9 5-14 MMOL/L Blood Urea Nitrogen 13 7-18 MG/DL Creatinine 0.72 0.60-1.30 MG/DL Estimat Glomerular Filtration Rate > 60 BUN/Creatinine Ratio 18 Glucose Level 92 70-105 MG/DL Calcium Level 8.6 8.5-10.1 MG/DL Magnesium Level 2.5 H 1.8-2.4 MG/DL Total Bilirubin 0.2 0.1-1.0 MG/DL Aspartate Amino Transf (AST/SGOT) 18 5-34 U/L Alanine Aminotransferase (ALT/SGPT) 13 0-55 U/L Alkaline Phosphatase 55 40-136 U/L Total Protein 5.1 L 6.4-8.2 GM/DL Albumin 3.1 L 3.2-4.5 GM/DL Triglycerides Level 138 <150 MG/DL Cholesterol Level 127 < 200 MG/DL LDL Cholesterol Direct 73 1-129 MG/DL VLDL Cholesterol 28 5-40 MG/DL HDL Cholesterol 34 L 40-60 MG/DL Thyroid Stimulating Hormone (TSH) 1.24 0.35-4.94 UIU/ML Radiology Date of Exam: 12/13/16 CHEST 1 VIEW, AP/PA ONLY INDICATION: Chest pain FINDINGS: The lungs are clear. The heart size and vascularity within normal limits. There is no effusion or pneumothorax. IMPRESSION: No acute appearing abnormality. Date of Exam: 12/13/16 CT ANGIO CHEST W PROCEDURE: CT angiography of the chest with contrast. TECHNIQUE: Multiple contiguous axial images were obtained through the chest after uneventful bolus administration of intravenous contrast. Reconstructed CTA MIP acquisitions were also performed. INDICATION: Chest pain, asthma. FINDINGS: There are no pulmonary arterial filling defects. There is no PE. The thoracic aorta is patent and showed no dissection, mural hemorrhage or rupture. Some mild thickening of the central airways which can be seen in reactive and bronchitis or asthma exacerbation. Some heterogeneous air trapping most conspicuous in the apices. No ronnie bronchiectasis. No alveolar consolidation or focal pneumonia. No effusion or pneumothorax. IMPRESSION: Negative for PE or acute aortic pathology. Heterogeneous air trapping with thickening of the central airways and peribronchial cuffing. No focal consolidation or acute pleural pathology, however. Physical Exam-(CHC) Physical Exam Vital Signs VS - Last 72 Hours, by Label 12/13/16 12/13/16 12/13/16 12/13/16 11:35 11:35 11:35 15:11 Temp 97.2 Pulse 82 67 Resp 18 18 B/P (MAP) 166/94 Pulse Ox 99 99 100 O2 Delivery Nasal Cannula Nasal Cannula O2 Flow Rate 2.00 2.0 12/13/16 12/13/16 12/13/16 12/13/16 15:31 16:01 16:12 17:30 Temp 98.0 Pulse 63 65 Resp 20 B/P (MAP) 148/88 Pulse Ox 98 97 97 95 O2 Delivery Room Air Room Air Room Air 12/13/16 12/13/16 12/13/16 12/14/16 19:00 20:16 20:19 00:00 Temp 98.9 97.4 Pulse 69 79 73 Resp 20 17 B/P (MAP) 143/74 114/54 Pulse Ox 98 98 96 O2 Delivery Room Air Room Air Room Air 12/14/16 12/14/16 12/14/16 12/14/16 01:00 04:00 07:00 08:00 Temp 97.8 97.3 Pulse 76 78 64 73 Resp 18 20 B/P (MAP) 117/62 154/84 Pulse Ox 97 97 O2 Delivery Room Air Room Air 12/14/16 10:08 Pulse Ox 98 O2 Delivery Room Air Capillary Refill : Less Than 3 Seconds General Appearance: WD/WN, no apparent distress HEENT: PERRL/EOMI Neck: non-tender, full range of motion, supple Respiratory: chest non-tender, lungs clear, normal breath sounds, no respiratory distress, no accessory muscle use Cardiovascular: normal peripheral pulses, regular rate, rhythm, no edema, no murmur Gastrointestinal: normal bowel sounds, non tender, soft, no organomegaly Back: normal inspection, no CVA tenderness, no vertebral tenderness Extremities: normal range of motion, non-tender, normal inspection, no pedal edema, no calf tenderness, normal capillary refill Neurologic/Psychiatric: chair car driver II-XII nml as tested, no motor/sensory deficits, alert, normal mood/affect, oriented x 3 Skin: normal color, warm/dry Lymphatic: no adenopathy Short Stay Diagnosis Discharge Diagnosis-Short Stay Admission Diagnosis Acute Chest Pain Normocytic Anemia CAD HTN Tobacco Use Final Discharge Diagnosis See Above Conclusion Plan 56 yo F with known CAD that presented to ER with chest pain Atypical Chest Pain - Cardiology consulted - CE neg x3 - Echo today - Needs outpatient follow up with cardiology with stress testing Normocytic Anemia - Outpatient workup CAD - Continue ASA, plavix and statin HTN - Continue home meds ACEI and BB Tobacco Use - Discussed the importance of cessation with her h/o CAD and prior SD D/c home today with close follow up with Cardiology at [facility] Clinical Quality Measures AMI/AHF: ASA po Prior to arrival: No DVT/VTE Risk/Contraindication: Risk Factor Score Per Nursin RFS Level Per Nursing on Admit: 2=Moderate Copy Copies To 1: [facility]ON[facility] HOLLY R MD Dec 14, 2016 13:08
[2016-12-14] MEDS ORDERED: BNZ40T PO (16:28)
[2016-12-14] MEDS ORDERED: LISI40TA PO (16:28)
[2016-12-14] MEDS ORDERED: CARV3.12 PO (16:28)
[2016-12-14] MEDS ORDERED: CLOP75TA69 PO (16:28)
[2016-12-14] MEDS ORDERED: ASPI-983 PO (16:28)
[2016-12-14] MEDS ORDERED: ATOR80TA64 PO (16:28)
== END 2016-12-14 16:16 | disposition home or self-care (01) ==
LOC: EDUNIT# 11:35 → ER 11:37 → 4TH 14:34 → UNDOADMOB 14:34 → 4TH 15:30 → UNDODISOB 12-14 17:15
PROVIDERS: ADMIT Family Medicine; ATTEND Family Medicine
DX: R07.9 Chest pain, unspecified (principal); I10 Essential (primary) hypertension; I25.10 Atherosclerotic heart disease of native coronary artery without angina pectoris; E78.5 Hyperlipidemia, unspecified; I25.2 Old myocardial infarction; J45.909 Unspecified asthma, uncomplicated; D64.9 Anemia, unspecified; Z79.899 Other long term (current) drug therapy; Z95.5 Presence of coronary angioplasty implant and graft
CPT/HCPCS: 36415; 71010; 71275; 80053; 80061; 82150; 83690; 83735; 83874; 84443; 84484; 85025; 85379; 85610; 85730; 93005; 93041; 93306; 94640; 94760; 96360; G0378

== ENCOUNTER → 2016-12-16 | Outpatient (CLI) | payer OTHER ==
[~2016-12-16] VITALS: Ht 170.2 cm; Wt 60.8 kg
[~2016-12-16] MED LIST changes: +ASPI-983 PO; +ATOR80TA64 PO; +BNZ40T PO; +CARV3.12 PO; +CATHETER FLUSH 10 ML SYR IV PRN; +CLOP75TA69 PO; +LISI40TA PO; +REGADENOSON 0.4 MG/5 ML SYR (LEXISCAN) IV ONE
[2016-12-16 10:09] VITALS: BP 180/107
[2016-12-16 10:12] VITALS: BP 153/94
[2016-12-16 10:14] VITALS: BP 170/98
== END ==
LOC: CARD 08:26
PROVIDERS: ATTEND Nurse Practitioner Family
DX: I25.10 Atherosclerotic heart disease of native coronary artery without angina pectoris (principal); R07.89 Other chest pain
CPT/HCPCS: 78452; 93017

== ENCOUNTER → 2017-01-06 | Outpatient (CLI) | payer OTHER ==
[~2017-01-06] MED LIST changes: -CATHETER FLUSH 10 ML SYR IV PRN; -REGADENOSON 0.4 MG/5 ML SYR (LEXISCAN) IV ONE
== END ==
LOC: RAD 13:51
PROVIDERS: ATTEND Nurse Practitioner Family
DX: I25.10 Atherosclerotic heart disease of native coronary artery without angina pectoris (principal); I10 Essential (primary) hypertension; E78.4 Other hyperlipidemia; I73.9 Peripheral vascular disease, unspecified; Z72.0 Tobacco use
CPT/HCPCS: 93923

== ENCOUNTER 2017-09-20 13:33 | Emergency (ER) | payer SELFPAY ==
[~2017-09-20] VITALS: Ht 170.2 cm; Wt 60.8 kg
--- OUTSIDE RECORDS SUMMARY | 2017-09-20 13:38 | XMS REPORT ---
Author Author LESLY TREJO Organization [facility] Address [address] [place] [address] Care Team Providers Care Aquatics Coordinator Name Role Phone LESLY TREJO Unavailable PROBLEMS Type Condition ICD9-CM Code TJO47-TE Code Onset Dates Condition Status SNOMED Code Problem Secondary hypertension I15.9 Active 64095365 Problem Coronary artery disease, angina presence unspecified, unspecified vessel or lesion type, unspecified whether [place] or transplanted heart I25.10 Active 53049153 Problem Depression, unspecified depression type F32.9 Active 86361251 Problem Combined hyperlipidemia E78.2 Active 301085341 Problem Pain of left hip joint M25.552 Active 39957817 Problem Hypercholesterolemia E78.00 Active 12919417 Problem Uncomplicated asthma, unspecified asthma severity J45.909 Active 073318833 Problem Breast lump N63 Active 44405347 Problem Anxiety F41.9 Active 90076737 Problem Abnormal finding on mammography R92.8 Active 335146999 ALLERGIES No Known Allergies SOCIAL HISTORY No smoking Hx information available PLAN OF CARE VITAL SIGNS MEDICATIONS No Known Medications RESULTS No Results PROCEDURES No Known procedures IMMUNIZATIONS No Known Immunizations
--- OUTSIDE RECORDS SUMMARY | 2017-09-20 13:38 | XMS REPORT ---
Author Author LESLY TREJO Organization [facility] Address [address] [place] [address] Care Team Providers Care Oil And Gas Field Technician Name Role Phone AKANKSHA TREJOE Unavailable PROBLEMS Type Condition ICD9-CM Code NEU34-XA Code Onset Dates Condition Status SNOMED Code Problem Secondary hypertension I15.9 Active 57736804 Problem Coronary artery disease, angina presence unspecified, unspecified vessel or lesion type, unspecified whether [place] or transplanted heart I25.10 Active 87584363 Problem Depression, unspecified depression type F32.9 Active 65730585 Problem Combined hyperlipidemia E78.2 Active 009488786 Problem Pain of left hip joint M25.552 Active 58246681 Problem Hypercholesterolemia E78.00 Active 99778088 Problem Uncomplicated asthma, unspecified asthma severity J45.909 Active 481320510 Problem Breast lump N63 Active 08923326 Problem Anxiety F41.9 Active 34711956 Problem Abnormal finding on mammography R92.8 Active 101219195 ALLERGIES No Information SOCIAL HISTORY Never Assessed PLAN OF CARE VITAL SIGNS MEDICATIONS Medication Instructions Dosage Frequency Start Date End Date Duration Status Proventil HFA 108 (90 Base) MCG/ACT Inhalation every 4 hrs 2 puffs as needed 4h Oct, Active RESULTS No Results PROCEDURES No Known procedures IMMUNIZATIONS No Known Immunizations MEDICAL (GENERAL) HISTORY Type Description Date Medical History asthma Medical History hypertension Medical History hyperlipidemia Medical History coronary artery disease Medical History depression Medical History blood clots thru left arm s/p extrenal jugular IV that infiltrated (NO BPs LEFT ARM) Medical History myocardial infarction (11/2014) Surgical History hysterectomy - total 2012 Surgical History stent 2014 Hospitalization History pneumothorax x3 weeks.
--- OUTSIDE RECORDS SUMMARY | 2017-09-20 13:38 | XMS REPORT ---
Author Author CRISTINA MCKEON Organization [facility] Address [address] [place] [address] Care Team Providers Care Quality Assurance Group Leader Name Role Phone CRISTINA MCKEON Unavailable PROBLEMS Type Condition ICD9-CM Code ZWP61-WP Code Onset Dates Condition Status SNOMED Code Problem Coronary artery disease, angina presence unspecified, unspecified vessel or lesion type, unspecified whether [place] or transplanted heart I25.10 Active 67783825 Problem Depression, unspecified depression type F32.9 Active 79359016 Problem Essential hypertension I10 Active 69999704 Problem Arthritis M19.90 Active 2952060 Problem Combined hyperlipidemia E78.2 Active 689054856 Problem Uncomplicated asthma, unspecified asthma severity J45.909 Active 347172767 Problem Hypercholesterolemia E78.00 Active 99407701 Problem Anxiety F41.9 Active 82169929 ALLERGIES No Information ENCOUNTERS Encounter Location Date Diagnosis [place] [id number] [place] [address] August, [place] [id number] [place] [address]57- 74[address] Jul, Coronary artery disease, angina presence unspecified, unspecified vessel or lesion type, unspecified whether [place] or transplanted heart I25.10 and Hypercholesterolemia E78.00 [facility] [address] [place] [address]24- [address] May, Coronary artery disease, angina presence unspecified, unspecified vessel or lesion type, unspecified whether [place] or transplanted heart I25.10 [facility] [id number] [place] [address] 75770- 7915 Apr, Hypercholesterolemia E78.00 and Coronary artery disease, angina presence unspecified, unspecified vessel or lesion type, unspecified whether [place] or transplanted heart I25.10 [place] [id number] [place] [address] 87398- [address] Feb, Essential hypertension I10 ; Uncomplicated asthma, unspecified asthma severity J45.909 ; Arthritis M19.90 and Encounter for immunization Z23 [place] [id number] [place] [address] 51055- 3065 Feb, Secondary hypertension I15.9 [place] [id number] [place] [address] 16655- 2058 Sep, Coronary artery disease, angina presence unspecified, unspecified vessel or lesion type, unspecified whether [place] or transplanted heart I25.10 ; Secondary hypertension I15.9 ; Uncomplicated asthma, unspecified asthma severity J45.909 ; Combined hyperlipidemia E78.2 ; Depression, unspecified depression type F32.9 ; Anxiety F41.9 and Hypercholesterolemia E78.00 [place] [id number] [place] [address] 39073- 8325 Sep, Uncomplicated asthma, unspecified asthma severity J45.909 [place] [id number] [place] [address] 64717- [address] August, Coronary artery disease, angina presence unspecified, unspecified vessel or lesion type, unspecified whether [place] or transplanted heart I25.10 and Secondary hypertension I15.9 [place] [address] [place] [address]- [address] May, [place] [id number] [place] [address] 01821- 4[address] May, Coronary artery disease, angina presence unspecified, unspecified vessel or lesion type, unspecified whether [place] or transplanted heart I25.10 ; Uncomplicated asthma, unspecified asthma severity J45.909 ; Depression, unspecified depression type F32.9 ; Anxiety F41.9 ; Secondary hypertension I15.9 ; Hypercholesterolemia E78.00 and Pain of left hip joint M25.552 [place] [id number] [place] [address] 30841- 3[address] Apr, [place] [address] [place] [address] Feb, Acute maxillary sinusitis, recurrence not specified J01.00 and Cough R05 [facility] [id number] [place] [address] 05311- [address] Feb, [facility] [address] [place] [address]117 Jan, Laceration T14.8 [facility] [id number] [place] [address] 27315- [address] Jan, [facility] [id number] [place] [address] 42161- 4[address] Jan, [facility] [id number] [place] [address] 89223- 8720 Jan, [place] [id number] [place] [address] 07438- 6467 Nov, Coronary artery disease, angina presence unspecified, unspecified vessel or lesion type, unspecified whether [place] or transplanted heart I25.10 ; Uncomplicated asthma, unspecified asthma severity J45.909 ; Combined hyperlipidemia E78.2 and Anxiety F41.9 [place] [id number] [place] [address] 64975- 1654 Oct, Breast lump N63 [place] [id number] [place] [address] 39378- 2832 Oct, Abnormal finding on mammography R92.8 ; Coronary artery disease, angina presence unspecified, unspecified vessel or lesion type, unspecified whether [place] or transplanted heart I25.10 ; Secondary hypertension I15.9 ; Uncomplicated asthma, unspecified asthma severity J45.909 ; Depression, unspecified depression type F32.9 and Anxiety F41.9 [place] [address] [place] [address]64- 8[address] Oct, Breast lump N63 [place] [id number] [place] [address] 30646- [address] Oct, Coronary artery disease, angina presence unspecified, unspecified vessel or lesion type, unspecified whether [place] or transplanted heart I25.10 ; Secondary hypertension I15.9 ; Uncomplicated asthma, unspecified asthma severity J45.909 ; Combined hyperlipidemia E78.2 ; Depression, unspecified depression type F32.9 and Breast lump N63 [facility] [address] [facility] [id number] [place] [address] Oct, 2015 Coronary artery disease, angina presence unspecified, unspecified vessel or lesion type, unspecified whether [place] or transplanted heart I25.10 ; Secondary hypertension I15.9 ; Uncomplicated asthma, unspecified asthma severity J45.909 ; Combined hyperlipidemia E78.2 ; Depression, unspecified depression type F32.9 and Breast lump N63 IMMUNIZATIONS No Known Immunizations SOCIAL HISTORY Never Assessed REASON FOR VISIT Refill request PLAN OF CARE VITAL SIGNS MEDICATIONS Medication Instructions Dosage Frequency Start Date End Date Duration Status Benazepril HCl 40 mg Orally Once a day 1 tablet 24h Sep, 90 days Active Proventil HFA 108 (90 Base) MCG/ACT Inhalation every 4 hrs 2 puffs as needed 4h Active RESULTS No Results PROCEDURES No Known procedures INSTRUCTIONS MEDICATIONS ADMINISTERED No Known Medications MEDICAL (GENERAL) HISTORY Type Description Date Medical [...]
--- OUTSIDE RECORDS SUMMARY | 2017-09-20 13:39 | XMS REPORT ---
Author Author LESLY TREJO [facility] Address [address] [place] [address] Care Team Providers Care Dynamometer Tester Name Role Phone ELISSA TREJONETTE Unavailable PROBLEMS Type Condition ICD9-CM Code QLE23-OE Code Onset Dates Condition Status SNOMED Code Problem Secondary hypertension I15.9 Active 90073096 Problem Coronary artery disease, angina presence unspecified, unspecified vessel or lesion type, unspecified whether [place] or transplanted heart I25.10 Active 66190182 Problem Depression, unspecified depression type F32.9 Active 41924713 Problem Combined hyperlipidemia E78.2 Active 476641144 Problem Pain of left hip joint M25.552 Active 89165870 Problem Hypercholesterolemia E78.00 Active 39093560 Problem Uncomplicated asthma, unspecified asthma severity J45.909 Active 187353283 Problem Breast lump N63 Active 55833931 Problem Anxiety F41.9 Active 24251916 Problem Abnormal finding on mammography R92.8 Active 811409746 ALLERGIES Substance Reaction Event Type Date Status Latex rash Drug Allergy May, Active Codeine Sulfate nausea and vomiting Drug Allergy May, Active SOCIAL HISTORY No smoking Hx information available PLAN OF CARE Activity Details Follow Up 3 Months, prn Reason: VITAL SIGNS Height 67 in 2016-05-30 Weight 124.8 lbs 2016-05-30 Temperature 98.1 degrees Fahrenheit 2016-05-30 Heart Rate 88 bpm 2016-05-30 Respiratory Rate 16 2016-05-30 BMI 19.54 kg/m2 2016-05-30 Blood pressure systolic 130 mmHg 2016-05-30 Blood pressure diastolic 90 mmHg 2016-05-30 MEDICATIONS Medication Instructions Dosage Frequency Start Date End Date Duration Status Potassium & Magnesium Aspartat 250-250 MG Orally Once a day 1 capsule with a meal 24h Active Nitrostat 0.4 MG Active Plavix 75 MG Orally Once a day 1 tablet 24h Active BusPIRone HCl 10 mg Orally Twice a day 1 tablet 12h 30 Active Aspirin 81 MG Orally Once a day 1 tablet 24h Active Lisinopril 40 mg Orally Once a day 1 tablet 24h Active Proventil HFA 108 (90 Base) MCG/ACT Inhalation every 4 hrs 2 puffs as needed 4h Oct, Active Albuterol Sulfate 108 (90 Base) MCG/ACT Inhalation every 4 hrs 1-2 puff as needed 4h Active Lipitor 80 MG Orally Once a day 1 tablet 24h Active Coreg 3.125 MG Orally 2 times a day 1 tablet 12h Active RESULTS Name Result Date Reference Range CBC 2016-05-30 WBC 4.4 3.4-10.8 RBC 4.33 3.77-5.28 Hemoglobin 12.2 11.1-15.9 Hematocrit 36.7 34.0-46.6 MCV 85 79-97 MCH 28.2 26.6-33.0 MCHC 33.2 31.5-35.7 RDW 15.2 12.3-15.4 Platelets 180 150-379 Neutrophils 54 Lymphs 30 Monocytes 12 Eos 4 Basos 0 Neutrophils (Absolute) 2.4 1.4-7.0 Lymphs (Absolute) 1.3 0.7-3.1 Monocytes(Absolute) 0.5 0.1-0.9 Eos (Absolute) 0.2 0.0-0.4 Baso (Absolute) 0.0 0.0-0.2 Immature Granulocytes 0 Immature Grans (Abs) 0.0 0.0-0.1 LIPID PANEL 2016-05-30 Cholesterol, Total 141 100-199 Triglycerides 54 0-149 HDL Cholesterol 56 >39 VLDL Cholesterol Santhosh 11 5-40 LDL Cholesterol Calc 74 0-99 Comment: CMP 2016-05-30 Glucose, Serum 77 65-99 BUN 21 6-24 Creatinine, Serum 0.95 0.57-1.00 eGFR If NonAfricn Am 67 >59 eGFR If Africn Am 77 >59 BUN/Creatinine Ratio 22 9-23 Sodium, Serum 141 134-144 Potassium, Serum 4.3 3.5-5.2 Chloride, Serum 100 96-106 Carbon Dioxide, Total 28 18-29 Calcium, Serum 9.2 8.7-10.2 Protein, Total, Serum 6.6 6.0-8.5 Albumin, Serum 4.5 3.5-5.5 Globulin, Total 2.1 1.5-4.5 A/G Ratio 2.1 1.1-2.5 Bilirubin, Total 0.2 0.0-1.2 Alkaline Phosphatase, S 67 39-117 AST (SGOT) 23 0-40 ALT (SGPT) 15 0-32 PROCEDURES Procedure Date Ordered Related Diagnosis Body Site Office Visit, Est Pt., Level 4 May 30, 2016 COMPLETE CBC W/AUTO DIFF WBC May 30, 2016 VENIPUNCT, ROUTINE* May 30, 2016 LIPID PANEL May 30, 2016 COMPREHEN METABOLIC PANEL May 30, 2016 THER/PROPH/DIAG INJ, SC/IM May 30, 2016 DEPO MEDROL 40 MG/ML May 30, 2016 IMMUNIZATIONS Vaccine Route Administration Date Status DEPO MEDROL 40 MG/ML IM Intramuscular May 30, 2016 Administered
--- OUTSIDE RECORDS SUMMARY | 2017-09-20 13:39 | XMS REPORT ---
Author Author LESLY TREJO Organization [facility] Address [address] [place] [address] Care Team Providers Care Motion Picture Film Examiner Name Role Phone LESLY TREJO Unavailable PROBLEMS Type Condition ICD9-CM Code IOP05-WY Code Onset Dates Condition Status SNOMED Code Problem Secondary hypertension I15.9 Active 89632107 Problem Coronary artery disease, angina presence unspecified, unspecified vessel or lesion type, unspecified whether [place] or transplanted heart I25.10 Active 76900652 Problem Depression, unspecified depression type F32.9 Active 04639236 Problem Combined hyperlipidemia E78.2 Active 893571203 Problem Pain of left hip joint M25.552 Active 18976205 Problem Hypercholesterolemia E78.00 Active 90741290 Problem Uncomplicated asthma, unspecified asthma severity J45.909 Active 547501909 Problem Breast lump N63 Active 39037046 Problem Anxiety F41.9 Active 25157302 Problem Abnormal finding on mammography R92.8 Active 016966396 ALLERGIES No Known Allergies SOCIAL HISTORY No smoking Hx information available PLAN OF CARE VITAL SIGNS MEDICATIONS No Known Medications RESULTS No Results PROCEDURES No Known procedures IMMUNIZATIONS No Known Immunizations
--- OUTSIDE RECORDS SUMMARY | 2017-09-20 13:39 | XMS REPORT ---
Author Author LESLY TREJO Organization [facility] Address [address] [place] [address] Care Team Providers Care Batt Machine Operator Name Role Phone ELISSA TREJONETTE Unavailable PROBLEMS Type Condition ICD9-CM Code [id number] Code Onset Dates Condition Status SNOMED Code Problem Secondary hypertension I15.9 Active 28053732 Problem Coronary artery disease, angina presence unspecified, unspecified vessel or lesion type, unspecified whether zuni or transplanted heart I25.10 Active 87474719 Problem Depression, unspecified depression type F32.9 Active 00166910 Problem Combined hyperlipidemia E78.2 Active 891263061 Problem Pain of left hip joint M25.552 Active 14982090 Problem Hypercholesterolemia E78.00 Active 95648147 Problem Uncomplicated asthma, unspecified asthma severity J45.909 Active 617115395 Problem Breast lump N63 Active 17745507 Problem Anxiety F41.9 Active 62047576 Problem Abnormal finding on mammography R92.8 Active 757400355 ALLERGIES No Information SOCIAL HISTORY Never Assessed PLAN OF CARE VITAL SIGNS MEDICATIONS Medication Instructions Dosage Frequency Start Date End Date Duration Status Lipitor 80 MG Orally Once a day 1 tablet 24h 90 days Active Lisinopril 40 mg Orally Once a day 1 tablet 24h August, 30 day(s) Active RESULTS No Results PROCEDURES No Known [...]
--- OUTSIDE RECORDS SUMMARY | 2017-09-20 13:39 | XMS REPORT ---
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 Name Role Phone josieLESLY Paz Unavailable PROBLEMS Type Condition ICD9-CM Code EMT98-YL Code Onset Dates Condition Status SNOMED Code Problem Coronary artery disease, angina presence unspecified, unspecified vessel or lesion type, unspecified whether ekl[place] or transplanted heart I25.10 Active 93074220 Problem Depression, unspecified depression type F32.9 Active 39421711 Problem Essential hypertension I10 Active 83807945 Problem Arthritis M19.90 Active 9254971 Problem Combined hyperlipidemia E78.2 Active 979791842 Problem Uncomplicated asthma, unspecified asthma severity J45.909 Active 350125322 Problem Hypercholesterolemia E78.00 Active 46902195 Problem Anxiety F41.9 Active 11881616 ALLERGIES Substance Reaction Event Type Date Status Latex rash Drug Allergy Sep, Active Codeine Sulfate nausea and vomiting Drug Allergy Sep, Active ENCOUNTERS Encounter Location Date Diagnosis [facility] [id number] [place] [address] Jul, [facility] [id number] [place] [address] May, Coronary artery disease, angina presence unspecified, unspecified vessel or lesion type, unspecified whether ekl[place] or transplanted heart I25.10 [facility] [id number] [place] [address] Apr, Hypercholesterolemia E78.00 and Coronary artery disease, angina presence unspecified, unspecified vessel or lesion type, unspecified whether ekl[place] or transplanted heart I25.10 [facility] [id number] [address] Feb, Essential hypertension I10 ; Uncomplicated asthma, unspecified asthma severity J45.909 ; Arthritis M19.90 and Encounter for immunization Z23 [place] [id number] [place] [address] Feb, Secondary hypertension I15.9 [place] [id number] [place] [address] Sep, Coronary artery disease, angina presence unspecified, unspecified vessel or lesion type, unspecified whether ekl[place] or transplanted heart I25.10 ; Secondary hypertension I15.9 ; Uncomplicated asthma, unspecified asthma severity J45.909 ; Combined hyperlipidemia E78.2 ; Depression, unspecified depression type F32.9 ; Anxiety F41.9 and Hypercholesterolemia E78.00 [place] [address] [address] Sep, Uncomplicated asthma, unspecified asthma severity J45.909 [place] [address] [address] August, Coronary artery disease, angina presence unspecified, unspecified vessel or lesion type, unspecified whether ekl[place] or transplanted heart I25.10 and Secondary hypertension I15.9 [place] [address] [address] May, [place] [id number] [place] [address] May, Coronary artery disease, angina presence unspecified, unspecified vessel or lesion type, unspecified whether ekl[place] or transplanted heart I25.10 ; Uncomplicated asthma, unspecified asthma severity J45.909 ; Depression, unspecified depression type F32.9 ; Anxiety F41.9 ; Secondary hypertension I15.9 ; Hypercholesterolemia E78.00 and Pain of left hip joint M25.552 [place] [id number] [place] [address] Apr, [place] [id number] [place] [address] Feb, Acute maxillary sinusitis, recurrence not specified J01.00 and Cough R05 [facility] [id number] [address] Feb, [facility] [id number] [address] Jan, Laceration T14.8 [facility] [address] [address] Jan, [facility] [id number] [place] [address] Jan, [facility] [id number] [place] [address] Jan, [place] [id number] [place] [address] Nov, Coronary artery disease, angina presence unspecified, unspecified vessel or lesion type, unspecified whether ekl[place] or transplanted heart I25.10 ; Uncomplicated asthma, unspecified asthma severity J45.909 ; Combined hyperlipidemia E78.2 and Anxiety F41.9 [facility] [address] [address] Oct, Breast lump N63 [place] [address] [place] [address] Oct, Abnormal finding on mammography R92.8 ; Coronary artery disease, angina presence unspecified, unspecified vessel or lesion type, unspecified whether ekl[place] or transplanted heart I25.10 ; Secondary hypertension I15.9 ; Uncomplicated asthma, unspecified asthma severity J45.909 ; Depression, unspecified depression type F32.9 and Anxiety F41.9 [place] [address] [address] Oct, Breast lump N63 [facility] [address] [address] Oct, Coronary artery disease, angina presence unspecified, unspecified vessel or lesion type, unspecified whether ekl[place] or transplanted heart I25.10 ; Secondary hypertension I15.9 ; Uncomplicated asthma, unspecified asthma severity J45.909 ; Combined hyperlipidemia E78.2 ; Depression, unspecified depression type F32.9 and Breast lump N63 [facility] [address] [facility] [id number] [place] [address] Oct, Coronary artery disease, angina presence unspecified, unspecified vessel or lesion type, unspecified whether [place] or transplanted heart I25.10 ; Secondary hypertension I15.9 ; Uncomplicated asthma, unspecified asthma severity J45.909 ; Combined hyperlipidemia E78.2 ; Depression, unspecified depression type F32.9 and Breast lump N63 IMMUNIZATIONS No Known Immunizations SOCIAL HISTORY Never Assessed REASON FOR VISIT 3 month f/u, no other concerns just need med refills- Nessa RICHARDS PLAN OF CARE Activity Details Follow Up 3 Months Reason:htn, cad VITAL SIGNS Height 67 in 2016-10-22 Weight 134.3 lbs 2016-10-22 Temperature 98.3 degrees Fahrenheit 2016-10-22 Heart Rate 102 bpm 2016-10-22 Respiratory Rate 18 2016-10-22 Oximetry 98 % 2016-10-22 BMI 21.03 kg/m2 2016-10-22 Blood pressure systolic 150 mmHg 2016-10-22 Blood pressure diastolic 102 mmHg 2016-10-22 MEDICATIONS Medication Instructions Dosage Frequency Start Date End Date Duration Status Benazepril HCl 40 mg Orally Once a day 1 tablet 24h Sep, 90 days Active Aspirin 81 MG Orally Once a day 1 tablet 24h Active Lipitor 80 MG Orally Once a day 1 tablet 24h 90 days Active Proventil HFA 108 (90 Base) MCG/ACT Inhalation every 4 hrs 2 puffs as needed 4h Oct, 30 days Active Nitrostat 0.4 MG Active Potassium & Magnesium Aspartat 250-250 MG Orally Once a day 1 capsule with a meal 24h Active Coreg 3.125 MG Orally 2 times a day 1 tablet 12h Active Plavix 75 MG Orally Once a day 1 tablet 24h Active RESULTS No Results PROCEDURES Procedure Date Ordered Result Body Site MEASURE BLOOD OXYGEN LEVEL October 22, 2016 INSTRUCTIONS MEDICATIONS ADMINISTERED No Known Medications MEDICAL [...]
[2017-09-20] MEDS ORDERED: diphenhydrAMINE 50 MG/ML INJ (BENADRYL) IVP ONE (14:15)
[2017-09-20] MEDS ORDERED: methylPREDNISolone 125 MG (Solu-MEDROL) VIAL IVP ONE (14:15)
[2017-09-20] MEDS ORDERED: raNItidine 50 MG/2 ML INJ (ZANTAC) IJ ONE (14:15)
[2017-09-20] MEDS ORDERED: FAMO-119 PO (14:22)
[2017-09-20] MEDS ORDERED: PRD20T PO (14:22)
--- NOTE | 2017-09-20 14:22 | ED General ---
General Chief Complaint: Allergic Reaction Stated Complaint: ALLERGIC REACTION TO HAIR DYE Nursing Triage Note: c/o allergic reaction to hair dye. patient reports this started thursday. c/o swelling. denies taking benadryl today, states took last, last thursday Nursing Sepsis Screen: No Definite Risk Source of Information: Patient Exam Limitations: No Limitations History of Present Illness Date Seen by Provider: September 20, 2017 Time Seen by Provider: 14:00 Initial Comments This 50 several woman presents to the emergency room with a markedly swollen right eye which she believes is due to allergic reaction to hair dye. She has had allergic reactions to hair dye in the past but thought she was using a product that would not cause a reaction. This is the third day of symptoms. She also has rash and itching around the hairline and the base of her neck. The left eye is not significantly affected. She has been trying Benadryl but this does not seem to be improving her symptoms. Her last dose of Benadryl was around 18:00. She denies any shortness of breath, tongue swelling, lip swelling , or throat tightness. Allergies and Home Medications Allergies Coded Allergies: codeine (Verified Allergy, Unknown, 12/13/16) latex (Unverified Allergy, Unknown, RASH, 09/08/12) Home Medications Aspirin 81 Mg Tablet.dr, 81 MG PO DAILY, (Reported) Atorvastatin Calcium 80 Mg Tablet, 80 MG PO HS, (Reported) Benazepril HCl 40 Mg Tab, 40 MG PO DAILY, (Reported) Carvedilol 3.125 Mg Tablet, 3.125 MG PO BID, (Reported) Clopidogrel Bisulfate 75 Mg Tablet, 75 MG PO DAILY, (Reported) Famotidine 20 Mg Tablet, 20 MG PO BID Prescribed by: IQRA TAYLOR on 09/20/17 142 Lisinopril 40 Mg Tablet, 40 MG PO DAILY, (Reported) Prednisone 20 Mg Tab, 40 MG PO DAILY Prescribed by: IQRA TAYLOR on 09/20/17 142 Patient Home Medication List Home Medication List Reviewed: Yes Review of Systems Constitutional: no symptoms reported EENTM: see HPI Respiratory: no symptoms reported Cardiovascular: no symptoms reported Gastrointestinal: no symptoms reported Genitourinary: no symptoms reported : No Musculoskeletal: no symptoms reported Skin: no symptoms reported Psychiatric/Neurological: No Symptoms Reported Hematologic/Lymphatic: No Symptoms Reported Immunological/Allergic: no symptoms reported Past Czkwjmk-Odylda-Tugwfs Hx Patient Social History Alcohol Use: Denies Use Number of Drinks Today: GG Alcohol Beverage of Choice: Whiskey Recreational Drug Use: No Smoking Status: Current Everyday Smoker Type Used: Cigarettes Recent Foreign Travel: No Contact w/Someone Who Travel: No Recent Infectious Disease Expo: No Physical Abuse: No Sexual Abuse: No Immunizations Up To Date Tetanus Booster (TDap): More than 5yrs PED Vaccines UTD: Yes Seasonal Allergies Seasonal Allergies: Yes Past Medical History Surgeries: Yes Coronary Stent Respiratory: Yes Asthma Cardiac: Yes Coronary Artery Disease, Hypertension Neurological: No Reproductive Disorders: Yes (UTERINE FIBROID ) Female Reproductive Disorders: Denies 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 Sexually Transmitted Disease: No HIV/AIDS: No Genitourinary: No Gastrointestinal: Yes Gastroesophageal Reflux Musculoskeletal: No Endocrine: No Loss of Vision: Bilateral Hearing Impairment: Denies Cancer: No Psychosocial: Yes Anxiety, Depression Nursing Suicide Risk Score: 0 Integumentary: No Blood Disorders: Yes (ANEMIA) Adverse Reaction/Blood Tranf: No Family Medical History Alcoholism Arthritis Asthma Cardiovascular disease Cataracts Drug abuse Hypertension Myocardial infarction Psychosocial problem Respiratory disorder Heart Disease, CAD Under 55 Years Old, Diabetes, Hypertension Physical Exam Vital Signs Vital Signs - First Documented 09/20/17 13:59 Temp 98.7 Pulse 86 Resp 18 B/P (MAP) 132/79 (96) Pulse Ox 98 Capillary Refill : Less Than 3 Seconds General Appearance: No Apparent Distress Eyes: Right Eye Other (Markedly edematous right eye which is swollen shut) HEENT: Pharynx Normal Neck: Normal Inspection Respiratory: Lungs Clear, Normal Breath Sounds, No Accessory Muscle Use, No Respiratory Distress Cardiovascular: Regular Rate, Rhythm, No Edema, No Murmur Extremity: Normal Inspection Neurologic/Psychiatric: Alert, Oriented x3, No Motor/Sensory Deficits, Normal 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, 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 Skin: Normal Color, Warm/Dry, Rash (Around the scalp margins and around the posterior neck), Other (Marked swelling of the right periorbital region) Progress/Results/Core Measures Suspected Sepsis Recent Fever Within 48 Hours: No Infection Criteria Present: None New/Unexplained Altered Menta: No Sepsis Screen: No Definite Risk SIRS Temperature:98.7 Pulse: 86 Respiratory Rate: 18 Blood Pressure 132 /79 Mean: 96 Results/Orders My Orders Orders - IQRA LIZARRAGA MD Diphenhydramine Injection (Benadryl Inje (09/20/17 14:15) Methylprednisolone Sod Succ (Solu-Medrol (09/20/17 14:15) Ranitidine Injection (Zantac Injection) (09/20/17 14:15) Saline Lock/Iv-Start (09/20/17 14:06) Medications Given in ED Current Medications Medications Dose Ordered Sig/Yonathan Route Start Time Stop Time Status Last Admin Dose Admin Diphenhydramine HCl 25 mg ONCE ONCE IVP 09/20/17 14:15 09/20/17 14:16 DC 09/20/17 14:33 50 MG Methylprednisolone Sodium Succinate 125 mg ONCE ONCE IVP 09/20/17 14:15 09/20/17 14:16 DC 09/20/17 14:32 125 MG Ranitidine HCl 50 mg ONCE ONCE IJ 09/20/17 14:15 09/20/17 14:16 DC 09/20/17 14:32 50 MG Vital Signs/I&O 09/20/17 09/20/17 13:59 14:34 Temp 98.7 98.7 Pulse 86 86 Resp 18 18 B/P (MAP) 132/79 (96) 132/79 (96) Pulse Ox 98 98 Capillary Refill : Less Than 3 Seconds Blood Pressure Mean: 96 Progress Note : Progress Note Patient has had no signs or symptoms of anaphylaxis. Her reaction seems to be localized. She was given injections of Solu-Medrol, ranitidine, and Benadryl. Prescriptions for Benadryl and Pepcid were provided. Departure Impression Primary Impression: Allergic reaction Qualified Codes: T78.40XA - Allergy, unspecified, initial encounter Disposition: 01 HOME, SELF-CARE Condition: Improved Departure-Patient Inst. Decision time for Depature: 14:19 Referrals: CRISTINA MCKEON MD (PCP/Family) Primary Care Physician Patient Instructions: Anaphylaxis (DC) Add. Discharge Instructions: Complete your medications as prescribed. Avoid use of products that trigger reaction. You may additionally take an antihistamine such as Benadryl up to 50 mg every 4 hours as needed for itching and further treatment of allergic reaction. Return to care if symptoms worsen. Present to an ER immediately or call 911 if you develop shortness of breath, lip swelling, tongue swelling, throat tightness or swelling, or other severe complications. Wash your hair thoroughly with shampoo to remove any remaining product. All discharge instructions reviewed with patient and/or family. Voiced understanding. Scripts Famotidine (Pepcid) 20 Mg Tablet 20 MG PO BID, #10 TAB Prov: IQRA LIZARRAGA MD 09/20/17 Prednisone (Prednisone) 20 Mg Tab 40 MG PO DAILY, #4 TAB Prov: IQRA LIZARRAGA MD 09/20/17 IQRA LIZARRAGA MD September 20, 2017 14:22
[2017-09-20 14:34] VITALS: BP 132/79
== END 2017-09-20 14:33 | disposition home or self-care (01) ==
LOC: EDUNIT# 13:33 → ER 13:34
DX: R22.0 Localized swelling, mass and lump, head (principal); T49.4X5A Adverse effect of keratolytics, keratoplastics, and other hair treatment drugs and preparations, initial encounter; F41.9 Anxiety disorder, unspecified; F32.9 Major depressive disorder, single episode, unspecified; K21.9 Gastro-esophageal reflux disease without esophagitis; D64.9 Anemia, unspecified; I25.10 Atherosclerotic heart disease of native coronary artery without angina pectoris; I10 Essential (primary) hypertension; J45.909 Unspecified asthma, uncomplicated; F17.210 Nicotine dependence, cigarettes, uncomplicated; Z79.82 Long term (current) use of aspirin; Z79.52 Long term (current) use of systemic steroids; Z95.5 Presence of coronary angioplasty implant and graft; Z88.5 Allergy status to narcotic agent; Z91.040 Latex allergy status; Z82.49 Family history of ischemic heart disease and other diseases of the circulatory system
CPT/HCPCS: 96372; 96374; 96375; 99284

== ENCOUNTER 2020-04-28 04:41 | Emergency (ER) | payer SELFPAY ==
[~2020-04-28] VITALS: Ht 170 cm; Wt 61.2 kg
[~2020-04-28 04:41] MED LIST changes: +ASPI-1238 PO; -ASPI-983 PO; +BENA40TA5 PO; -BNZ40T PO; +FAMO-119 PO; +PRD20T PO
[2020-04-28] MEDS ORDERED: NITROGLYCERIN 0.4 MG SL TABS BTL 25'S SL PRN (05:00)
[2020-04-28] MEDS ORDERED: ASPIRIN 81 MG CHEW (CHILDREN'S ASA) PO ONE (05:00)
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
[2020-04-28 05:22] LABS: BASOPHILS % (AUTO) 0 % (0-10); EOSINOPHILS # (AUTO) 0.1 10^3/uL (0.0-0.3); EOSINOPHILS % (AUTO) 1 % (0-10); HEMATOCRIT 44 % (35-52); HEMOGLOBIN 13.9 g/dL (11.5-16.0); LYMPHOCYTES # (AUTO) 1.1 10^3/uL (1.0-4.0); LYMPHOCYTES % (AUTO) 11 % (12-44); MEAN CORPUSCULAR HEMOGLOBIN 29 pg (25-34); MEAN CORPUSCULAR HGB CONC 32 g/dL (32-36); MEAN CORPUSCULAR VOLUME 89 fL (80-99); MEAN PLATELET VOLUME 11.3 fL (9.0-12.2); MONOCYTES # (AUTO) 0.9 10^3/uL (0.0-1.0); MONOCYTES % (AUTO) 9 % (0-12); NEUTROPHILS # (AUTO) 7.8 10^3/uL (1.8-7.8); NEUTROPHILS % (AUTO) 79 % (42-75); PLATELET COUNT 208 10^3/uL (130-400); WHITE BLOOD COUNT 9.9 10^3/uL (4.3-11.0)
[2020-04-28 05:30] LABS: ALBUMIN 4.4 GM/DL (3.2-4.5)
[2020-04-28 05:31] LABS: CHLORIDE 101 MMOL/L (98-107); SODIUM 137 MMOL/L (135-145)
[2020-04-28 05:32] LABS: CALCIUM 9.8 MG/DL (8.5-10.1)
[2020-04-28 05:33] LABS: GLUCOSE 111 MG/DL (70-105); TOTAL PROTEIN 7.3 GM/DL (6.4-8.2)
[2020-04-28 05:34] LABS: CARBON DIOXIDE 25 MMOL/L (21-32)
[2020-04-28 05:35] LABS: BILIRUBIN,TOTAL 0.8 MG/DL (0.1-1.0)
[2020-04-28 05:36] LABS: ALKALINE PHOSPHATASE 67 U/L (40-136)
[2020-04-28 05:37] LABS: CREATININE SERUM 0.99 MG/DL (0.60-1.30); GFR ESTIMATED 57
[2020-04-28 05:38] LABS: BUN/CREATININE RATIO 21
[2020-04-28 05:39] LABS: ALANINE AMINOTRANSFERASE 17 U/L (0-55)
[2020-04-28 05:49] LABS: INR 0.9 (0.8-1.4); PROTHROMBIN TIME PATIENT 12.4 SEC (12.2-14.7)
[2020-04-28 05:50] LABS: FIBRIN DEGRADATION PRODUCTS 0.24 UG/ML (0.00-0.49)
--- NOTE | 2020-04-28 07:13 | Diagnostic Imaging Report ---
Indication: Chest pain. Time of exam: 5:11 AM Correlation is made with chest 12/13/2016. The heart size is normal. The pulmonary vascularity is unremarkable. The lungs are clear. No infiltrate, effusion or pneumothorax is detected. Impression: No acute cardiopulmonary process is detected. Dictated by: Dictated on workstation # [id number]
[2020-04-28 07:49] VITALS: BP 167/96
== END 2020-04-28 07:49 | disposition home or self-care (01) ==
LOC: EDUNIT# 04:41 → ER 04:44
DX: R07.9 Chest pain, unspecified (principal); F41.9 Anxiety disorder, unspecified; I10 Essential (primary) hypertension; K21.9 Gastro-esophageal reflux disease without esophagitis; J45.909 Unspecified asthma, uncomplicated; F17.210 Nicotine dependence, cigarettes, uncomplicated; Z82.61 Family history of arthritis; Z82.49 Family history of ischemic heart disease and other diseases of the circulatory system; Z83.3 Family history of diabetes mellitus; Z88.5 Allergy status to narcotic agent; Z91.040 Latex allergy status; Z79.82 Long term (current) use of aspirin; Z79.52 Long term (current) use of systemic steroids
CPT/HCPCS: 36415; 71045; 80053; 83735; 83874; 83880; 84484; 85025; 85379; 85610; 85730; 93005; 93041